=== PATIENT | male | born 1965 | race Caucasian/White ===

== ENCOUNTER 2018-07-30 10:37 | Emergency (ER) | payer SELFPAY ==
[~2018-07-30] VITALS: Ht 170.2 cm; Wt 75.0 kg
[2018-07-30] MEDS ORDERED: ALBU1.25 NEB (10:44)
[2018-07-30] MEDS ORDERED: VENTAER INH ×2 (10:44→11:48)
[2018-07-30] MEDS ORDERED: predniSONE 20 MG TAB PO ONE (11:00)
[2018-07-30] MEDS ORDERED: IPRATROPIUM 0.5MG/ALBUTEROL 2.5MG INH SOL UD 3ML (DUONEB)(J7620) NEB ONE (11:00)
[2018-07-30 11:26] VITALS: BP 141/92
--- NOTE | 2018-07-30 11:36 | REP ---
Chest x-ray: Two views. History: Shortness of breath and cough. No comparison study. Findings: There are increased markings in the right upper lobe distribution consistent with a subtle pneumonia. The lung galicia are otherwise clear. Pleural angles are sharp. Cardiomediastinal silhouette is unremarkable. There are degenerative disc changes in the thoracic spine. No acute bony abnormality. Impression: Subtle increased markings right upper lobe posteriorly consistent with pneumonia. Follow-up radiograph post treatment is recommended. Electronically Signed by Ulises Colon MD 07/30/2018 11:28 A
[2018-07-30] MEDS ORDERED: LEVA750T7 PO (11:48)
[2018-07-30] MEDS ORDERED: PRED20TA PO (11:48)
[2018-07-30] MEDS ORDERED: MUCI600T31 PO (11:48)
[2018-07-30] MEDS ORDERED: ALB2.5NEB NEB (11:48)
== END 2018-07-30 11:57 | disposition home or self-care (01) ==
LOC: M ED 10:37
DX: J18.9 Pneumonia, unspecified organism (principal); Z87.09 Personal history of other diseases of the respiratory system

== ENCOUNTER 2018-09-24 11:15 | Emergency (ER) | payer MEDICAID, SELFPAY ==
[~2018-09-24] VITALS: Ht 170.2 cm; Wt 75.0 kg
[~2018-09-24 11:15] MED LIST: ALB2.5NEB NEB; ALBU1.25 NEB; LEVA750T7 PO; MUCI600T31 PO; PRED20TA PO; VENTAER INH
[2018-09-24 12:15] LABS: BASO # 0.1 10^3/uL (0.0-0.2); BASO % 0.9 % (0.0-1.0); EOS # 1.1 10^3/uL (0.0-0.50); EOS % 12.6 % (0.0-3.0); HEMATOCRIT 39.7 % (42.0-52.0); LYMPH # 1.9 10^3/uL (1.5-4.5); LYMPH % 22.2 % (24.0-44.0); MEAN CORPUSCULAR HEMOGLOBIN 32.3 pg (27.0-33.0); MEAN CORPUSCULAR HGB CONC 35.3 g/dl (32.0-36.5); MEAN CORPUSCULAR VOLUME 91.7 fl (80.0-96.0); MONO # 0.6 10^3/uL (0.0-0.8); MONO % 6.8 % (0.0-5.0); NEUTROPHILS # 4.8 10^3/uL (1.8-7.7); NEUTROPHILS % 57.4 % (36.0-66.0); PLATELET COUNT, AUTOMATED 233 10^3/uL (150-450); RED BLOOD COUNT 4.33 10^6/uL (4.30-6.10); WHITE BLOOD COUNT 8.4 10^3/uL (4.0-10.0)
[2018-09-24] MEDS: ALBUTEROL SULFATE 2.5 MG/0.5 ML INH NEB SOLN INH PRN ×2 (12:22→12:24)
--- NOTE | 2018-09-24 12:27 | REP ---
PA and lateral chest: Comparison is 07/30/2018. There is a subtle right perihilar density, similar to the comparison study, compatible with subsegmental infiltrate that has resolved. A CT follow-up might be considered for further evaluation. Remainder the lung galicia are clear. Cardiac size normal. The enrrique, mediastinum, skeletal structures are. Impression: Persisting right perihilar density. Consider CT follow-up. Electronically Signed by Rizwan Larkin MD 09/24/2018 12:19 P
[2018-09-24] MEDS ORDERED: PROAAER10 INH (13:31)
[2018-09-24] MEDS ORDERED: ZITHTAB PO (13:31)
[2018-09-24 13:33] VITALS: BP 142/97
[2018-09-24 13:51] LABS: ALT/SGPT 29 U/L (12-78); BILIRUBIN,DIRECT 0.1 MG/DL (0.0-0.2); BILIRUBIN,TOTAL 0.6 MG/DL (0.2-1.0); BLOOD UREA NITROGEN 9 MG/DL (7-18); CALCIUM LEVEL 8.4 MG/DL (8.5-10.1); CARBON DIOXIDE LEVEL 25 MEQ/L (21-32); CHLORIDE LEVEL 109 MEQ/L (98-107); CREATININE FOR GFR 0.63 MG/DL (0.70-1.30); GLOMERULAR FILTRATION RATE > 60.0 (>56); GLUCOSE, FASTING 85 MG/DL (70-100); NT-PRO BNP 32 PG/ML (<125); POTASSIUM SERUM 4.5 MEQ/L (3.5-5.1); SODIUM LEVEL 142 MEQ/L (136-145); TOTAL PROTEIN 7.2 GM/DL (6.4-8.2)
--- NOTE | 2018-09-25 10:29 | ED PDOC ---
Post-Departure Follow-Up [facility] faxed formal report of cxr for fu Yazmin Winter MD Sep 25, 2018 10:29
--- NOTE | 2018-09-25 20:51 | ECGEPIP ---
Stationary ECG Study [facility] - ED Test Date: 2018-09-24 Pat Name: LUCIO MORALES Department: Room: - Gender: M [employer]: : [id number] Requested By: Clara Kay PA-C Order Number: [id number] Reading MD: Abbi Ac Measurements Intervals [place] Rate: 76 P: 48 NH: 152 QRS: -12 QRSD: 93 T: 41 QT: 375 QTc: 422 Interpretive Statements SINUS RHYTHM WITH SINUS ARRHYTHMIA RIGHT VENTRICULAR CONDUCTION DELAY NO PRIOR FOR COMPARISON Electronically Signed On 09-25-2018 20:50:56 EDT by Abbi Ac
[2018-09-29 00:06] LABS: BODY FLUID CULTURE Not Indicated (.); LEGIONELLA ANTIGEN URINE Negative (Negative); ORGANISM ID Not indicated. (.); SPECIMEN SOURCE Urine (.); URINE STREP PNEUMONIAE ANTIGEN Negative (Negative)
[2018-09-30 00:10] LABS: ASPERGILLUS FLAVUS ABY Negative (Neg:<1:1); ASPERGILLUS FUMIGATUS ABY Negative (Neg:<1:1); ASPERGILLUS NIGER ABY Negative (Neg:<1:1)
== END 2018-09-24 14:24 | disposition home or self-care (01) ==
LOC: M ED 11:15
DX: R05 Cough (principal); R06.02 Shortness of breath; R06.2 Wheezing; R93.89 Abnormal findings on diagnostic imaging of other specified body structures; D64.9 Anemia, unspecified; E87.6 Hypokalemia; I49.9 Cardiac arrhythmia, unspecified; R94.31 Abnormal electrocardiogram [ECG] [EKG]; Z86.19 Personal history of other infectious and parasitic diseases; Z87.01 Personal history of pneumonia (recurrent)

== ENCOUNTER 2018-10-28 13:18 | Emergency (ER) | payer MEDICAID ==
[~2018-10-28] VITALS: Ht 170.2 cm; Wt 75.0 kg
[~2018-10-28 13:18] MED LIST changes: +PROAAER10 INH; +ZITHTAB PO
[2018-10-28] MEDS ORDERED: methylPREDNISolone INJ 125 MG/2 ML VIAL (J2930) IM ONE (14:15)
--- NOTE | 2018-10-28 14:17 | REP ---
PA and lateral chest: Comparisons are 09/24/2018 and 07/30/2018. There is a persisting 15 ml faintly visible nodular density in the right upper lobe, unchanged from both prior studies. Therefore, CT is recommended to determine if this is a lung nodule. There are no infiltrates or effusions. No other nodules. The lung galicia otherwise clear and unchanged. Cardiac size is normal. The enrrique, mediastinum, skeletal structures are unremarkable. Impression: Persisting 15 ml nodular density in the right upper lobe. CT is recommended for further evaluation. Electronically Signed by Rizwan Larkin MD 10/28/2018 02:08 P
[2018-10-28] MEDS: IPRATROPIUM 0.5MG/ALBUTEROL 2.5MG INH SOL UD 3ML (DUONEB)(J7620) NEB PRN ×2 (14:26→14:39)
[2018-10-28] MEDS ORDERED: PROAAER10 INH (15:00)
[2018-10-28] MEDS ORDERED: ALBU83IN NEB (15:00)
[2018-10-28] MEDS ORDERED: EASY-106 XX (15:00)
[2018-10-28] MEDS ORDERED: PRED20TA PO (15:01)
--- NOTE | 2018-10-28 15:02 | REP ---
CT chest without contrast: History: Evaluation of nodule. Comparison is made with today's chest x-ray. CT findings: CT study confirms the presence of abnormality in the right upper lobe distribution. There is a clustering of spiculated nodular opacities in the posterior segment of the right upper lobe. The largest of these measures 2.1 cm in greatest diameter. This and several other smaller nodular opacities in the right upper lobe abut the top of the major fissure. The next largest spiculated nodule measures 1.5 cm in greatest diameter. There are ten separately identifiable spiculated nodules in the right upper lobe. No other pulmonary nodule is appreciated. Some vascular calcifications is noted. There are scattered normal-sized mediastinal lymph nodes. The largest mediastinal lymph node is to the left of the calli measuring 10 mm in short axis dimension. No definite hilar adenopathy on this noncontrast chest CT. No obvious supraclavicular adenopathy is seen. No adrenal lesion is observed. No hepatic lesion is seen. No bony destructive lesion is seen. Impression: Multiple spiculated nodules clustered in the posterior segment of the right upper lobe measuring up to 2.1 cm in greatest diameter. Primary bronchogenic malignancy must be excluded. There is one borderline mediastinal lymph node and several other smaller mediastinal lymph nodes. Consider histologic sampling and PET/CT scanning. Electronically Signed by Ulises Colon MD 10/28/2018 08:07 P
[2018-10-28 15:09] VITALS: BP 130/93
--- NOTE | 2018-10-31 13:44 | ED PDOC ---
Post-Departure Follow-Up certified letter sent to [facility] re formal read of cxr. find out pcp is and fax Yazmin Newby MD Oct 31, 2018 13:44
== END 2018-10-28 15:10 | disposition home or self-care (01) ==
LOC: M ED 13:18
DX: R91.1 Solitary pulmonary nodule (principal); R06.2 Wheezing; R05 Cough; R59.0 Localized enlarged lymph nodes; Z86.19 Personal history of other infectious and parasitic diseases
CPT/HCPCS: 71046; 71250; 94640; 96372; 99283; J2930

== ENCOUNTER → 2019-01-03 | Outpatient (REF) | payer OTHER ==
[~2019-01-03] MED LIST changes: +ALBU83IN NEB; +EASY-106 XX
== END ==
LOC: M LAB REF 17:13
PROVIDERS: ATTEND Internal Medicine Pulmonary Disease
DX: R91.8 Other nonspecific abnormal finding of lung field (principal)

== ENCOUNTER 2021-10-15 16:32 | Inpatient (IN) | payer MEDICAID, OTHER, SELFPAY ==
[~2021-10-15] VITALS: Ht 170.2 cm; Wt 69.4 kg
[2021-10-15] MEDS ORDERED: SING10TA32 PO (16:45)
[2021-10-15] MEDS ORDERED: IPRATROPIUM 0.5MG/ALBUTEROL 2.5MG INH SOL UD 3ML (DUONEB) NEB ONE (22:15)
[2021-10-15] MEDS ORDERED: methylPREDNISolone 125MG 2ML VIAL IV ONE (22:15)
[2021-10-15] MEDS ORDERED: ALBUTEROL SULFATE 2.5 MG/0.5 ML INH NEB SOLN INH ONE ×2 (22:15→22:40)
[2021-10-15 23:30] LABS: BASO # 0.1 10^3/uL (0.0-0.2); BASO % 0.6 % (0.0-1.0); EOS # 1.1 10^3/uL (0.0-0.5); EOS % 6.8 % (0.0-3.0); HEMATOCRIT 45.9 % (42.0-52.0); HEMOGLOBIN 15.5 g/dl (13.5-17.5); LYMPH # 2.6 10^3/uL (1.5-5.0); LYMPH % 16.1 % (24.0-44.0); MEAN CORPUSCULAR HEMOGLOBIN 30.1 pg (27.0-33.0); MEAN CORPUSCULAR HGB CONC 33.8 g/dl (32.0-36.5); MEAN CORPUSCULAR VOLUME 89.1 fl (80.0-96.0); MONO # 0.8 10^3/uL (0.0-0.8); MONO % 5.1 % (2.0-8.0); NEUTROPHILS # 11.5 10^3/uL (1.5-8.5); NEUTROPHILS % 71.1 % (36.0-66.0); PLATELET COUNT, AUTOMATED 265 10^3/uL (150-450); RED BLOOD COUNT 5.15 10^6/uL (4.30-6.10); WHITE BLOOD COUNT 16.1 10^3/uL (4.0-10.0)
[2021-10-15 23:58] LABS: CK-MB VALUE MASS < 1.0 NG/ML (<3.6); CPK CREATINE PHOSPHOKINASE 60 U/L (39-308); MB/CK RELATIVE INDEX 1.67 (< OR =4)
[2021-10-16 00:04] LABS: ALBUMIN 3.7 GM/DL (3.2-5.2); ALT/SGPT 40 U/L (12-78); BILIRUBIN,DIRECT 0.1 MG/DL (0.0-0.2); BILIRUBIN,TOTAL 0.5 MG/DL (0.2-1.0); BLOOD UREA NITROGEN 12 MG/DL (7-18); CALCIUM LEVEL 9.9 MG/DL (8.5-10.1); CARBON DIOXIDE LEVEL 33 MEQ/L (21-32); CHLORIDE LEVEL 100 MEQ/L (98-107); GLOMERULAR FILTRATION RATE > 60.0 (>56); GLUCOSE, FASTING 96 MG/DL (70-100); NT-PRO BNP 12 PG/ML (<125); POTASSIUM SERUM 4.8 MEQ/L (3.5-5.1); SODIUM LEVEL 138 MEQ/L (136-145); THYROXINE (T4) 9.7 UG/DL (4.5-12.0); TOTAL PROTEIN 8.8 GM/DL (6.4-8.2)
[2021-10-16] MEDS ORDERED: ALBUTEROL SULFATE 2.5 MG/0.5 ML INH NEB SOLN INH ONE (00:30)
[2021-10-16] MEDS ORDERED: IPRATROPIUM 0.5MG/ALBUTEROL 2.5MG INH SOL UD 3ML (DUONEB) NEB ONE ×2 (00:30→01:50)
[2021-10-16] MEDS ORDERED: ISOVUE-370 76% 100ML VIAL As Ordered ONE (00:32)
[2021-10-16] MEDS ORDERED: LEVALBUTEROL 1.25 MG/0.5 ML CONCENTRATE NEB NEB PRN (03:00)
[2021-10-16] MEDS ORDERED: MAALOX 30 ML SUSP *UDC PO PRN (03:00)
[2021-10-16] MEDS ORDERED: MOM 30ML SUSPENSION UDC PO PRN (03:00)
[2021-10-16] MEDS ORDERED: ACETAMINOPHEN TAB 650MG DOSE (2X325MG) PO PRN (03:00)
[2021-10-16 03:37] LABS: INR 0.99; PROTHROMBIN TIME 13.5 SECONDS (12.7-14.5)
[2021-10-16 03:38] LABS: PARTIAL THROMBOPLASTIN TIME 33.1 SECONDS (25.9-37.0)
[2021-10-16] MEDS ORDERED: ADVA230A INH (06:12)
[2021-10-16] MEDS ORDERED: ALBU8.5H INH (06:12)
[2021-10-16] MEDS ORDERED: MONT10TA97 PO (06:12)
[2021-10-16] MEDS ORDERED: HOME MED LIST COMPLETE! XX SCH (06:15)
[2021-10-16] MEDS: IPRATROPIUM 0.5MG/ALBUTEROL 2.5MG INH SOL UD 3ML (DUONEB) NEB SCH ×3 (07:50→20:03)
[2021-10-16 08:10] LABS: HEMATOCRIT 45.5 % (42.0-52.0); HEMOGLOBIN 15.5 g/dl (13.5-17.5); MEAN CORPUSCULAR HEMOGLOBIN 30.1 pg (27.0-33.0); MEAN CORPUSCULAR HGB CONC 34.1 g/dl (32.0-36.5); MEAN CORPUSCULAR VOLUME 88.3 fl (80.0-96.0); RED BLOOD COUNT 5.15 10^6/uL (4.30-6.10); WHITE BLOOD COUNT 10.9 10^3/uL (4.0-10.0)
[2021-10-16 08:31] LABS: BLOOD UREA NITROGEN 14 MG/DL (7-18); CALCIUM LEVEL 9.6 MG/DL (8.5-10.1); CARBON DIOXIDE LEVEL 28 MEQ/L (21-32); CHLORIDE LEVEL 100 MEQ/L (98-107); CREATININE FOR GFR 0.78 MG/DL (0.70-1.30); GLOMERULAR FILTRATION RATE > 60.0 (>56); GLUCOSE, FASTING 134 MG/DL (70-100); MAGNESIUM LEVEL 2.3 MG/DL (1.8-2.4); POTASSIUM SERUM 4.9 MEQ/L (3.5-5.1); SODIUM LEVEL 134 MEQ/L (136-145)
[2021-10-16] MEDS: ENOXAPARIN 40MG/0.4ML SYRINGE (J1650 PER 10MG) SC SCH (08:40)
[2021-10-16] MEDS: methylPREDNISolone 125MG 2ML VIAL IV SCH ×2 (08:40→20:39)
[2021-10-16] MEDS: DOCUSATE SODIUM 100MG CAPSULE PO SCH ×2 (08:40→20:38)
[2021-10-16 13:20] VITALS: BP 134/98
[2021-10-16 13:45] VITALS: O2SAT 94
[2021-10-16 18:46] VITALS: BP 142/76
[2021-10-17 00:34] VITALS: O2SAT 92
[2021-10-17] MEDS: guaiFENesin DM LIQ 10ML UD PO PRN ×2 (03:38→11:42)
[2021-10-17] MEDS: IPRATROPIUM 0.5MG/ALBUTEROL 2.5MG INH SOL UD 3ML (DUONEB) NEB SCH ×3 (03:38→13:22)
[2021-10-17 06:00] VITALS: BP 142/88
[2021-10-17] MEDS ORDERED: ADVAIR HFA 230/21MCG INHALER INH SCH (08:00)
[2021-10-17] MEDS ORDERED: AZITHROMYCIN 250MG TABLET PO ONE (08:30)
[2021-10-17] MEDS: methylPREDNISolone 125MG 2ML VIAL IV SCH (08:59)
[2021-10-17] MEDS: DOCUSATE SODIUM 100MG CAPSULE PO SCH (09:00)
[2021-10-17] MEDS: ENOXAPARIN 40MG/0.4ML SYRINGE (J1650 PER 10MG) SC SCH (09:01)
[2021-10-17] MEDS ORDERED: ALBU83IN INH (09:11)
[2021-10-17] MEDS ORDERED: SPIR1CAP INH (09:11)
[2021-10-17] MEDS ORDERED: DULE100A INH (09:11)
[2021-10-17] MEDS ORDERED: PRED10TA2 PO (09:11)
[2021-10-17] MEDS ORDERED: AZIT-12 PO (09:11)
[2021-10-17] MEDS ORDERED: PROV108A INH (09:11)
[2021-10-17] MEDS ORDERED: NORV5TAB PO (10:48)
[2021-10-17] MEDS ORDERED: SELF1KIT MC (10:50)
[2021-10-17] MEDS ORDERED: amLODIPine 5 MG TAB PO ONE (11:00)
[2021-10-17 11:42] VITALS: BP 158/98
[2021-10-17] MEDS ORDERED: methylPREDNISolone 125MG 2ML VIAL IV ONE (15:30)
[2021-10-17] MEDS: LEVALBUTEROL 1.25 MG/0.5 ML CONCENTRATE NEB INH SCH ×2 (15:47→15:48)
[2021-10-17] MEDS ORDERED: amLODIPine 5 MG TAB PO SCH (21:00)
[2021-10-17] MEDS ORDERED: MONTELUKAST 10 MG TAB PO SCH (21:00)
[2021-10-18] MEDS ORDERED: predniSONE 20 MG TAB PO SCH (09:00)
[2021-10-18] MEDS ORDERED: AZITHROMYCIN 250MG TABLET PO SCH (09:00)
== END 2021-10-17 17:53 | disposition home or self-care (01) | DRG 140 ==
LOC: M ED 16:32 → M ED INP 10-16 03:00 → ENRESERV 10-16 13:01 → M MSPAV 10-16 13:19
PROVIDERS: ADMIT Family Medicine; ATTEND General Practice
DX: J44.1 Chronic obstructive pulmonary disease with (acute) exacerbation (principal); J45.909 Unspecified asthma, uncomplicated; R00.0 Tachycardia, unspecified; E87.1 Hypo-osmolality and hyponatremia; R91.8 Other nonspecific abnormal finding of lung field; I16.0 Hypertensive urgency; Z79.899 Other long term (current) drug therapy

== ENCOUNTER 2022-01-06 07:04 | Emergency (ER) | payer MEDICAID, OTHER ==
[~2022-01-06] VITALS: Ht 170.2 cm; Wt 69.9 kg
[~2022-01-06 07:04] MED LIST changes: +ADVA230A INH; +ALBU2.5V10 INH; +ALBU2.5V10 NEB; +ALBU8.5H INH; -ALBU83IN NEB; +AZIT-12 PO; +DULE100A INH; +MONT10TA97 PO; +NORV5TAB PO; +PRED10TA2 PO; +PROV108A INH; +SELF1KIT MC; +SING10TA32 PO; +SPIR1CAP INH
[2022-01-06] MEDS ORDERED: predniSONE 20 MG TAB PO ONE (07:35)
[2022-01-06 08:20] LABS: VENOUS BASE EXCESS -1.3 (-2.0-2.0); VENOUS HCO3 24.6 MEQ/L (23.0-27.0); VENOUS O2 SATURATION 86.9 % (60.0-80.0); VENOUS PARTIAL PRESSURE CO2 45.2 mmHg (38.0-50.0); VENOUS PARTIAL PRESSURE O2 56.2 mmHg (30.0-50.0); VENOUS PH 7.353 UNITS (7.330-7.430); VENOUS STANDARD HCO3 23.1 MEQ/L
[2022-01-06 08:25] LABS: BASO # 0.1 10^3/uL (0.0-0.2); BASO % 0.8 % (0.0-1.0); EOS # 2.2 10^3/uL (0.0-0.5); HEMATOCRIT 43.5 % (42.0-52.0); HEMOGLOBIN 14.7 g/dl (13.5-17.5); LYMPH # 1.8 10^3/uL (1.5-5.0); LYMPH % 17.1 % (24.0-44.0); MEAN CORPUSCULAR HEMOGLOBIN 30.5 pg (27.0-33.0); MEAN CORPUSCULAR HGB CONC 33.8 g/dl (32.0-36.5); MEAN CORPUSCULAR VOLUME 90.2 fl (80.0-96.0); MONO # 0.7 10^3/uL (0.0-0.8); MONO % 6.4 % (2.0-8.0); NEUTROPHILS # 5.9 10^3/uL (1.5-8.5); NEUTROPHILS % 54.8 % (36.0-66.0); RED BLOOD COUNT 4.82 10^6/uL (4.30-6.10); WHITE BLOOD COUNT 10.7 10^3/uL (4.0-10.0)
[2022-01-06] MEDS: COMBIVENT RESPIMAT 100-20MCG INHALER 4GM INH SCH ×3 (08:37→09:04)
[2022-01-06 08:41] LABS: EOS % 20.7 % (0.0-3.0)
[2022-01-06 08:57] LABS: ALBUMIN 3.7 GM/DL (3.2-5.2); ALT/SGPT 17 U/L (12-78); BILIRUBIN,DIRECT < 0.1 MG/DL (0.0-0.2); BILIRUBIN,TOTAL 0.4 MG/DL (0.2-1.0); BLOOD UREA NITROGEN 11 MG/DL (7-18); CALCIUM LEVEL 9.7 MG/DL (8.5-10.1); CARBON DIOXIDE LEVEL 25 MEQ/L (21-32); CHLORIDE LEVEL 102 MEQ/L (98-107); CREATININE FOR GFR 0.78 MG/DL (0.70-1.30); GLOMERULAR FILTRATION RATE > 60.0 (>56); GLUCOSE, FASTING 93 MG/DL (70-100); POTASSIUM SERUM 3.8 MEQ/L (3.5-5.1); SODIUM LEVEL 137 MEQ/L (136-145); TOTAL PROTEIN 8.4 GM/DL (6.4-8.2)
[2022-01-06 08:58] LABS: NT-PRO BNP 53 PG/ML (<125)
[2022-01-06] MEDS ORDERED: ISOVUE-370 76% 100ML VIAL As Ordered ONE (09:55)
[2022-01-06] MEDS ORDERED: PRED20TA PO (11:13)
[2022-01-06] MEDS ORDERED: LEVO750T14 PO (11:13)
[2022-01-06 11:21] VITALS: BP 138/95
[2022-01-07] MEDS ORDERED: AMLO1TAB24 PO (03:28)
[2022-01-07] MEDS ORDERED: DULE100A INH (03:28)
[2022-01-07] MEDS ORDERED: PRED20TA PO (03:28)
[2022-01-07] MEDS ORDERED: LEVO750T13 PO (03:28)
== END 2022-01-06 11:23 | disposition home or self-care (01) ==
LOC: M ED 07:04
DX: J44.1 Chronic obstructive pulmonary disease with (acute) exacerbation (principal); H66.91 Otitis media, unspecified, right ear; J45.909 Unspecified asthma, uncomplicated; R91.1 Solitary pulmonary nodule; Z79.899 Other long term (current) drug therapy
CPT/HCPCS: 36415; 71045; 71275; 80048; 80076; 82803; 83605; 83880; 84443; 85025; 87040; 87077; 87186; 87486; 87581; 87633; 87798; 93005; 93041; 94640; 94760; 99284; J7512; Q9967

== ENCOUNTER 2022-01-06 23:41 | Inpatient (IN) | payer OTHER ==
[~2022-01-06] VITALS: Ht 170.2 cm; Wt 67.7 kg
[~2022-01-06 23:41] MED LIST changes: +LEVO750T14 PO
[2022-01-07] MEDS ORDERED: methylPREDNISolone 125MG 2ML VIAL IV ONE (00:25)
[2022-01-07 00:53] LABS: VENOUS BASE EXCESS -0.6 (-2.0-2.0); VENOUS HCO3 24.2 MEQ/L (23.0-27.0); VENOUS O2 SATURATION 92.2 % (60.0-80.0); VENOUS PARTIAL PRESSURE CO2 40.2 mmHg (38.0-50.0); VENOUS PARTIAL PRESSURE O2 65.6 mmHg (30.0-50.0); VENOUS PH 7.397 UNITS (7.330-7.430); VENOUS STANDARD HCO3 23.9 MEQ/L; VENOUS TOTAL CO2 25.4 MEQ/L (24.0-28.0)
[2022-01-07] MEDS: IPRATROPIUM 0.5MG/ALBUTEROL 2.5MG INH SOL UD 3ML (DUONEB) NEB PRN ×3 (00:57→06:34)
[2022-01-07 01:02] LABS: BASO % 0.2 % (0.0-1.0); HEMATOCRIT 41.7 % (42.0-52.0); HEMOGLOBIN 14.1 g/dl (13.5-17.5); LYMPH # 0.9 10^3/uL (1.5-5.0); LYMPH % 8.9 % (24.0-44.0); MEAN CORPUSCULAR HEMOGLOBIN 30.2 pg (27.0-33.0); MEAN CORPUSCULAR HGB CONC 33.8 g/dl (32.0-36.5); MEAN CORPUSCULAR VOLUME 89.3 fl (80.0-96.0); MONO # 0.5 10^3/uL (0.0-0.8); MONO % 5.4 % (2.0-8.0); NEUTROPHILS # 8.2 10^3/uL (1.5-8.5); NEUTROPHILS % 85.1 % (36.0-66.0); RED BLOOD COUNT 4.67 10^6/uL (4.30-6.10); WHITE BLOOD COUNT 9.6 10^3/uL (4.0-10.0)
[2022-01-07 01:26] LABS: ALBUMIN 3.5 GM/DL (3.2-5.2); ALT/SGPT 19 U/L (12-78); BILIRUBIN,DIRECT 0.2 MG/DL (0.0-0.2); BILIRUBIN,TOTAL 0.2 MG/DL (0.2-1.0); BLOOD UREA NITROGEN 13 MG/DL (7-18); CALCIUM LEVEL 8.8 MG/DL (8.5-10.1); CARBON DIOXIDE LEVEL 25 MEQ/L (21-32); CHLORIDE LEVEL 101 MEQ/L (98-107); CREATININE FOR GFR 0.81 MG/DL (0.70-1.30); GLOMERULAR FILTRATION RATE > 60.0 (>56); GLUCOSE, FASTING 125 MG/DL (70-100); POTASSIUM SERUM 4.1 MEQ/L (3.5-5.1); SODIUM LEVEL 137 MEQ/L (136-145); TOTAL PROTEIN 8.6 GM/DL (6.4-8.2)
[2022-01-07] MEDS ORDERED: cefTRIAXone SOD 1 GM in D5W MINI-BAG PLUS 50 ML IV ONE (02:55)
[2022-01-07] MEDS ORDERED: AMLO1TAB24 PO (03:28)
[2022-01-07] MEDS ORDERED: DULE100A INH (03:28)
[2022-01-07] MEDS ORDERED: LEVO750T13 PO (03:28)
[2022-01-07] MEDS ORDERED: PRED20TA PO (03:28)
[2022-01-07] MEDS ORDERED: MAALOX 30 ML SUSP *UDC PO PRN (03:30)
[2022-01-07] MEDS ORDERED: HOME MED LIST COMPLETE! XX SCH (03:30)
[2022-01-07] MEDS ORDERED: MOM 30ML SUSPENSION UDC PO PRN (03:30)
[2022-01-07] MEDS ORDERED: ACETAMINOPHEN TAB 650MG DOSE (2X325MG) PO PRN (03:30)
[2022-01-07] MEDS ORDERED: LEVALBUTEROL 1.25 MG/0.5 ML CONCENTRATE NEB NEB PRN (03:30)
[2022-01-07 03:49] LABS: INR 0.99; PROTHROMBIN TIME 13.5 SECONDS (12.7-14.5)
[2022-01-07 03:50] LABS: PARTIAL THROMBOPLASTIN TIME 31.8 SECONDS (25.9-37.0)
[2022-01-07 06:38] LABS: HEMATOCRIT 41.2 % (42.0-52.0); HEMOGLOBIN 13.8 g/dl (13.5-17.5); MEAN CORPUSCULAR HEMOGLOBIN 30.1 pg (27.0-33.0); MEAN CORPUSCULAR HGB CONC 33.5 g/dl (32.0-36.5); MEAN CORPUSCULAR VOLUME 89.8 fl (80.0-96.0); PLATELET COUNT, AUTOMATED 214 10^3/uL (150-450); RED BLOOD COUNT 4.59 10^6/uL (4.30-6.10); WHITE BLOOD COUNT 9.8 10^3/uL (4.0-10.0)
[2022-01-07 07:02] LABS: BLOOD UREA NITROGEN 12 MG/DL (7-18); CALCIUM LEVEL 9.7 MG/DL (8.5-10.1); CARBON DIOXIDE LEVEL 25 MEQ/L (21-32); CHLORIDE LEVEL 105 MEQ/L (98-107); CREATININE FOR GFR 0.62 MG/DL (0.70-1.30); GLOMERULAR FILTRATION RATE > 60.0 (>56); GLUCOSE, FASTING 138 MG/DL (70-100); MAGNESIUM LEVEL 2.5 MG/DL (1.8-2.4); POTASSIUM SERUM 4.5 MEQ/L (3.5-5.1); SODIUM LEVEL 138 MEQ/L (136-145)
[2022-01-07] MEDS: IPRATROPIUM 0.5MG/ALBUTEROL 2.5MG INH SOL UD 3ML (DUONEB) NEB SCH ×4 (08:00→19:13)
[2022-01-07] MEDS: ADVAIR HFA 115/21MCG INHALER INH SCH ×2 (08:14→19:13)
[2022-01-07] MEDS: ENOXAPARIN 40MG/0.4ML SYRINGE (J1650 PER 10MG) SC SCH (09:11)
[2022-01-07] MEDS: DOCUSATE SODIUM 100MG CAPSULE PO SCH ×2 (09:11→22:26)
[2022-01-07] MEDS: amLODIPine 5 MG TAB PO SCH (09:12)
[2022-01-07 11:55] VITALS: BP 155/103
[2022-01-07 11:59] VITALS: BP 144/98
[2022-01-07 12:00] VITALS: BP 151/96
[2022-01-07 12:12] VITALS: O2SAT 93
[2022-01-07] MEDS: methylPREDNISolone 125MG 2ML VIAL IV SCH ×2 (12:30→23:24)
[2022-01-07 14:00] VITALS: BP 148/96
[2022-01-07] MEDS ORDERED: cefTRIAXone SOD 1 GM in D5W MINI-BAG PLUS 50 ML IV SCH (21:00)
[2022-01-07 21:30] VITALS: BP 147/95
[2022-01-08] MEDS: IPRATROPIUM 0.5MG/ALBUTEROL 2.5MG INH SOL UD 3ML (DUONEB) NEB SCH ×4 (02:00→19:27)
[2022-01-08 05:13] VITALS: O2SAT 91
[2022-01-08 06:00] VITALS: BP 142/93
[2022-01-08] MEDS: ADVAIR HFA 115/21MCG INHALER INH SCH ×2 (07:47→19:27)
[2022-01-08 08:31] LABS: HEMATOCRIT 44.2 % (42.0-52.0); HEMOGLOBIN 14.5 g/dl (13.5-17.5); MEAN CORPUSCULAR HEMOGLOBIN 29.8 pg (27.0-33.0); MEAN CORPUSCULAR HGB CONC 32.8 g/dl (32.0-36.5); MEAN CORPUSCULAR VOLUME 90.9 fl (80.0-96.0); PLATELET COUNT, AUTOMATED 170 10^3/uL (150-450); RED BLOOD COUNT 4.86 10^6/uL (4.30-6.10); WHITE BLOOD COUNT 19.2 10^3/uL (4.0-10.0)
[2022-01-08] MEDS: amLODIPine 5 MG TAB PO SCH (08:40)
[2022-01-08] MEDS: DOCUSATE SODIUM 100MG CAPSULE PO SCH ×2 (08:40→21:19)
[2022-01-08] MEDS: ENOXAPARIN 40MG/0.4ML SYRINGE (J1650 PER 10MG) SC SCH (08:41)
[2022-01-08 08:57] LABS: BLOOD UREA NITROGEN 15 MG/DL (7-18); CARBON DIOXIDE LEVEL 25 MEQ/L (21-32); CHLORIDE LEVEL 105 MEQ/L (98-107); CREATININE FOR GFR 0.72 MG/DL (0.70-1.30); GLOMERULAR FILTRATION RATE > 60.0 (>56); GLUCOSE, FASTING 110 MG/DL (70-100); POTASSIUM SERUM 4.3 MEQ/L (3.5-5.1); SODIUM LEVEL 139 MEQ/L (136-145)
[2022-01-08] MEDS: methylPREDNISolone 125MG 2ML VIAL IV SCH (12:55)
[2022-01-08 14:00] VITALS: BP 158/90
[2022-01-08 16:03] LABS: IMMUNOGLOBULIN G 1700 MG/DL (681-1648); IMMUNOGLOBULIN M 95.8 MG/DL (40-230)
[2022-01-08] MEDS: guaiFENesin DM LIQ 10ML UD PO PRN (21:19)
[2022-01-08 22:00] VITALS: BP 148/98
[2022-01-08 23:58] LABS: HIV 1&2 SCREEN CENTAUR NEGATIVE (NEGATIVE)
[2022-01-09] MEDS: IPRATROPIUM 0.5MG/ALBUTEROL 2.5MG INH SOL UD 3ML (DUONEB) NEB SCH ×4 (01:50→19:58)
[2022-01-09 04:00] VITALS: O2SAT 93
[2022-01-09 06:00] VITALS: BP 144/98
[2022-01-09 06:49] LABS: HEMATOCRIT 42.5 % (42.0-52.0); HEMOGLOBIN 14.1 g/dl (13.5-17.5); MEAN CORPUSCULAR HEMOGLOBIN 30.1 pg (27.0-33.0); MEAN CORPUSCULAR HGB CONC 33.2 g/dl (32.0-36.5); MEAN CORPUSCULAR VOLUME 90.6 fl (80.0-96.0); PLATELET COUNT, AUTOMATED 120 10^3/uL (150-450); RED BLOOD COUNT 4.69 10^6/uL (4.30-6.10)
[2022-01-09 07:01] LABS: BLOOD UREA NITROGEN 13 MG/DL (7-18); CALCIUM LEVEL 8.3 MG/DL (8.5-10.1); CARBON DIOXIDE LEVEL 30 MEQ/L (21-32); CHLORIDE LEVEL 102 MEQ/L (98-107); CREATININE FOR GFR 0.55 MG/DL (0.70-1.30); GLOMERULAR FILTRATION RATE > 60.0 (>56); GLUCOSE, FASTING 81 MG/DL (70-100); POTASSIUM SERUM 3.5 MEQ/L (3.5-5.1); SODIUM LEVEL 137 MEQ/L (136-145)
[2022-01-09] MEDS: ADVAIR HFA 115/21MCG INHALER INH SCH ×2 (07:59→19:58)
[2022-01-09 09:00] VITALS: O2SAT 91
[2022-01-09] MEDS ORDERED: predniSONE 20 MG TAB PO SCH (09:00)
[2022-01-09] MEDS: FLUTICASONE PROP 0.05% NASAL SPRAY 16 GM (FLONASE) NARES SCH (09:00)
[2022-01-09] MEDS: DOCUSATE SODIUM 100MG CAPSULE PO SCH ×2 (09:04→19:37)
[2022-01-09] MEDS: ENOXAPARIN 40MG/0.4ML SYRINGE (J1650 PER 10MG) SC SCH (09:04)
[2022-01-09] MEDS: predniSONE 20 MG TAB PO SCH (09:05)
[2022-01-09] MEDS: amLODIPine 5 MG TAB PO SCH (09:09)
[2022-01-09 14:00] VITALS: BP 149/113
[2022-01-09] MEDS: guaiFENesin DM LIQ 10ML UD PO PRN (19:37)
[2022-01-09] MEDS: VORICONAZOLE 200MG TABLET (VFEND) PO SCH (19:37)
[2022-01-09 21:35] VITALS: BP 142/96
[2022-01-10] MEDS: IPRATROPIUM 0.5MG/ALBUTEROL 2.5MG INH SOL UD 3ML (DUONEB) NEB SCH ×4 (01:14→20:00)
[2022-01-10 06:00] VITALS: BP 155/93
[2022-01-10 06:42] LABS: HEMATOCRIT 43.2 % (42.0-52.0); HEMOGLOBIN 14.4 g/dl (13.5-17.5); MEAN CORPUSCULAR HEMOGLOBIN 30.5 pg (27.0-33.0); MEAN CORPUSCULAR HGB CONC 33.3 g/dl (32.0-36.5); MEAN CORPUSCULAR VOLUME 91.5 fl (80.0-96.0); RED BLOOD COUNT 4.72 10^6/uL (4.30-6.10); WHITE BLOOD COUNT 10.2 10^3/uL (4.0-10.0)
[2022-01-10 07:03] LABS: BLOOD UREA NITROGEN 13 MG/DL (7-18); CALCIUM LEVEL 9.4 MG/DL (8.5-10.1); CARBON DIOXIDE LEVEL 28 MEQ/L (21-32); CHLORIDE LEVEL 103 MEQ/L (98-107); CREATININE FOR GFR 0.68 MG/DL (0.70-1.30); GLOMERULAR FILTRATION RATE > 60.0 (>56); GLUCOSE, FASTING 92 MG/DL (70-100); POTASSIUM SERUM 3.4 MEQ/L (3.5-5.1); SODIUM LEVEL 139 MEQ/L (136-145)
[2022-01-10] MEDS: ADVAIR HFA 115/21MCG INHALER INH SCH ×2 (07:36→20:03)
[2022-01-10] MEDS: DOCUSATE SODIUM 100MG CAPSULE PO SCH ×2 (09:25→21:22)
[2022-01-10] MEDS: ENOXAPARIN 40MG/0.4ML SYRINGE (J1650 PER 10MG) SC SCH (09:26)
[2022-01-10] MEDS: VORICONAZOLE 200MG TABLET (VFEND) PO SCH ×2 (09:26→21:22)
[2022-01-10] MEDS: predniSONE 20 MG TAB PO SCH (09:26)
[2022-01-10] MEDS: amLODIPine 5 MG TAB PO SCH (09:26)
[2022-01-10] MEDS: FLUTICASONE PROP 0.05% NASAL SPRAY 16 GM (FLONASE) NARES SCH (09:26)
[2022-01-10] MEDS ORDERED: SPOR1CAP PO (09:45)
[2022-01-10] MEDS ORDERED: PRED10TA2 PO (09:45)
[2022-01-10] MEDS ORDERED: MONT10TA97 PO (09:45)
[2022-01-10] MEDS ORDERED: BACT800T5 PO (09:45)
[2022-01-10] MEDS ORDERED: FLUTISP NARES (09:45)
[2022-01-10] MEDS ORDERED: GUAISYP5 PO (09:45)
[2022-01-10] MEDS ORDERED: AMLO1TAB25 PO (09:45)
[2022-01-10] MEDS: MONTELUKAST 10 MG TAB PO SCH (10:31)
[2022-01-10 14:00] VITALS: BP 150/82
[2022-01-10 20:12] VITALS: BP 137/87
[2022-01-11] MEDS: IPRATROPIUM 0.5MG/ALBUTEROL 2.5MG INH SOL UD 3ML (DUONEB) NEB SCH ×4 (01:53→20:00)
[2022-01-11 05:51] VITALS: BP 148/85
[2022-01-11 06:16] LABS: HEMOGLOBIN 14.7 g/dl (13.5-17.5); MEAN CORPUSCULAR HEMOGLOBIN 29.5 pg (27.0-33.0); MEAN CORPUSCULAR HGB CONC 32.7 g/dl (32.0-36.5); MEAN CORPUSCULAR VOLUME 90.4 fl (80.0-96.0); PLATELET COUNT, AUTOMATED 153 10^3/uL (150-450); RED BLOOD COUNT 4.98 10^6/uL (4.30-6.10); WHITE BLOOD COUNT 11.5 10^3/uL (4.0-10.0)
[2022-01-11 06:37] LABS: BLOOD UREA NITROGEN 14 MG/DL (7-18); CALCIUM LEVEL 9.3 MG/DL (8.5-10.1); CARBON DIOXIDE LEVEL 30 MEQ/L (21-32); CHLORIDE LEVEL 104 MEQ/L (98-107); CREATININE FOR GFR 0.62 MG/DL (0.70-1.30); GLOMERULAR FILTRATION RATE > 60.0 (>56); GLUCOSE, FASTING 89 MG/DL (70-100); POTASSIUM SERUM 3.5 MEQ/L (3.5-5.1); SODIUM LEVEL 140 MEQ/L (136-145)
[2022-01-11] MEDS: ADVAIR HFA 115/21MCG INHALER INH SCH ×2 (07:32→20:06)
[2022-01-11] MEDS: DOCUSATE SODIUM 100MG CAPSULE PO SCH ×2 (08:52→20:59)
[2022-01-11] MEDS: ENOXAPARIN 40MG/0.4ML SYRINGE (J1650 PER 10MG) SC SCH (08:53)
[2022-01-11] MEDS: VORICONAZOLE 200MG TABLET (VFEND) PO SCH ×2 (08:53→20:59)
[2022-01-11] MEDS: amLODIPine 5 MG TAB PO SCH (08:53)
[2022-01-11] MEDS: FLUTICASONE PROP 0.05% NASAL SPRAY 16 GM (FLONASE) NARES SCH (08:53)
[2022-01-11] MEDS: predniSONE 20 MG TAB PO SCH (08:53)
[2022-01-11] MEDS: MONTELUKAST 10 MG TAB PO SCH (08:53)
[2022-01-11 14:00] VITALS: BP_SYST 106; BP_SYST 137; BP_DIAS 100; BP_DIAS 51
[2022-01-12] MEDS: IPRATROPIUM 0.5MG/ALBUTEROL 2.5MG INH SOL UD 3ML (DUONEB) NEB SCH ×3 (02:02→13:47)
[2022-01-12 04:56] VITALS: BP 142/87
[2022-01-12 06:39] LABS: HEMATOCRIT 44.2 % (42.0-52.0); HEMOGLOBIN 14.7 g/dl (13.5-17.5); MEAN CORPUSCULAR HEMOGLOBIN 30.5 pg (27.0-33.0); MEAN CORPUSCULAR HGB CONC 33.3 g/dl (32.0-36.5); MEAN CORPUSCULAR VOLUME 91.7 fl (80.0-96.0); PLATELET COUNT, AUTOMATED 209 10^3/uL (150-450); RED BLOOD COUNT 4.82 10^6/uL (4.30-6.10); WHITE BLOOD COUNT 17.2 10^3/uL (4.0-10.0)
[2022-01-12 07:01] LABS: BLOOD UREA NITROGEN 21 MG/DL (7-18); CALCIUM LEVEL 8.9 MG/DL (8.5-10.1); CARBON DIOXIDE LEVEL 32 MEQ/L (21-32); CHLORIDE LEVEL 99 MEQ/L (98-107); CREATININE FOR GFR 0.87 MG/DL (0.70-1.30); GLOMERULAR FILTRATION RATE > 60.0 (>56); GLUCOSE, FASTING 62 MG/DL (70-100); POTASSIUM SERUM 3.1 MEQ/L (3.5-5.1); SODIUM LEVEL 137 MEQ/L (136-145)
[2022-01-12] MEDS: ADVAIR HFA 115/21MCG INHALER INH SCH (07:32)
[2022-01-12] MEDS: FLUTICASONE PROP 0.05% NASAL SPRAY 16 GM (FLONASE) NARES SCH (08:58)
[2022-01-12] MEDS: VORICONAZOLE 200MG TABLET (VFEND) PO SCH (08:58)
[2022-01-12] MEDS: DOCUSATE SODIUM 100MG CAPSULE PO SCH (08:58)
[2022-01-12] MEDS: ENOXAPARIN 40MG/0.4ML SYRINGE (J1650 PER 10MG) SC SCH (08:58)
[2022-01-12] MEDS: predniSONE 20 MG TAB PO SCH (08:58)
[2022-01-12] MEDS: MONTELUKAST 10 MG TAB PO SCH (08:58)
[2022-01-12 09:01] VITALS: BP 148/88
[2022-01-12] MEDS: amLODIPine 5 MG TAB PO SCH (09:01)
[2022-01-12 14:00] VITALS: BP 152/92
[2022-01-12] MEDS ORDERED: SPOR1CAP PO (15:24)
== END 2022-01-12 16:30 | disposition home or self-care (01) | DRG 142 ==
LOC: M ED 23:41 → M ED INP 01-07 03:29 → ENRESERV 01-07 10:55 → M MSPAV 01-07 11:50
PROVIDERS: ADMIT Family Medicine; ATTEND Internal Medicine
DX: B44.81 Allergic bronchopulmonary aspergillosis (principal); J84.10 Pulmonary fibrosis, unspecified; B49 Unspecified mycosis; J45.901 Unspecified asthma with (acute) exacerbation; I10 Essential (primary) hypertension; J98.4 Other disorders of lung; J32.4 Chronic pansinusitis; J47.9 Bronchiectasis, uncomplicated; Z79.52 Long term (current) use of systemic steroids; Z79.899 Other long term (current) drug therapy

== ENCOUNTER 2022-03-21 11:38 | Inpatient (IN) | payer OTHER ==
[~2022-03-21] VITALS: Ht 170.2 cm; Wt 68.7 kg
[~2022-03-21 11:38] MED LIST changes: +ALBU6.7H6 INH; +AMLO1TAB24 PO; +AMLO1TAB25 PO; +BACT800T5 PO; +FLUTISP NARES; +GUAISYP5 PO; +LEVO1TAB40 PO; -PROV108A INH; +SPOR1CAP PO
[2022-03-21] MEDS ORDERED: COMBIVENT RESPIMAT 100-20MCG INHALER 4GM INH STA (12:11)
[2022-03-21] MEDS ORDERED: methylPREDNISolone 125MG 2ML VIAL IV ONE (12:15)
[2022-03-21 12:38] LABS: BASO # 0.1 10^3/uL (0.0-0.2); BASO % 0.7 % (0.0-1.0); EOS # 4.6 10^3/uL (0.0-0.5); HEMATOCRIT 42.4 % (42.0-52.0); HEMOGLOBIN 14.2 g/dl (13.5-17.5); LYMPH % 11.7 % (24.0-44.0); MEAN CORPUSCULAR HEMOGLOBIN 30.4 pg (27.0-33.0); MEAN CORPUSCULAR HGB CONC 33.5 g/dl (32.0-36.5); MEAN CORPUSCULAR VOLUME 90.8 fl (80.0-96.0); MONO % 5.9 % (2.0-8.0); NEUTROPHILS # 9.7 10^3/uL (1.5-8.5); NEUTROPHILS % 55.3 % (36.0-66.0); RED BLOOD COUNT 4.67 10^6/uL (4.30-6.10); WHITE BLOOD COUNT 17.5 10^3/uL (4.0-10.0)
[2022-03-21 12:39] LABS: VENOUS BASE EXCESS 2.6 (-2.0-2.0); VENOUS HCO3 30.3 MEQ/L (23.0-27.0); VENOUS O2 SATURATION 61.1 % (60.0-80.0); VENOUS PARTIAL PRESSURE CO2 59.1 mmHg (38.0-50.0); VENOUS PARTIAL PRESSURE O2 34.1 mmHg (30.0-50.0); VENOUS PH 7.327 UNITS (7.330-7.430); VENOUS STANDARD HCO3 25.7 MEQ/L; VENOUS TOTAL CO2 32.1 MEQ/L (24.0-28.0)
[2022-03-21 13:13] LABS: EOS % 26.1 % (0.0-3.0)
[2022-03-21 13:23] LABS: ALBUMIN 3.4 GM/DL (3.2-5.2); ALT/SGPT 14 U/L (12-78); BILIRUBIN,DIRECT 0.1 MG/DL (0.0-0.2); BILIRUBIN,TOTAL 0.4 MG/DL (0.2-1.0); BLOOD UREA NITROGEN 7 MG/DL (7-18); CALCIUM LEVEL 9.7 MG/DL (8.5-10.1); CARBON DIOXIDE LEVEL 31 MEQ/L (21-32); CHLORIDE LEVEL 101 MEQ/L (98-107); CREATININE FOR GFR 0.68 MG/DL (0.70-1.30); GLOMERULAR FILTRATION RATE > 60.0 (>56); GLUCOSE, FASTING 93 MG/DL (70-100); NT-PRO BNP 51 PG/ML (<125); POTASSIUM SERUM 3.9 MEQ/L (3.5-5.1); SODIUM LEVEL 136 MEQ/L (136-145); TOTAL PROTEIN 7.7 GM/DL (6.4-8.2)
[2022-03-21 13:35] LABS: RSV AMPLIFICATION NEGATIVE (NEGATIVE)
[2022-03-21] MEDS: IPRATROPIUM 0.5MG/ALBUTEROL 2.5MG INH SOL UD 3ML (DUONEB) NEB SCH ×2 (14:00→19:58)
[2022-03-21] MEDS ORDERED: FLON1SPR NARES (15:02)
[2022-03-21] MEDS ORDERED: HOME MED LIST COMPLETE! XX SCH (15:05)
[2022-03-21] MEDS ORDERED: AZITHROMYCIN INJ 500 MG, VIAL MATE ADAPTER 1 EACH in NS 250 ML IV SCH (16:00)
[2022-03-21] MEDS ORDERED: MAG SULF 1GM/100ML (MAG RUN) 1 GM in IV 1 EA IV ONE (16:00)
[2022-03-21 16:18] LABS: ABG BASE EXCESS 2.1 (-2.0-2.0); ABG O2 SATURATION 86.4 % (95.0-99.0); ABG PARTIAL PRESSURE CO2 43.2 mmHg (35.0-45.0); ABG PARTIAL PRESSURE O2 51.3 mmHg (75.0-100.0); ABG TOTAL CO2 28.3 MEQ/L (22.0-29.0); ABG pH (ARTERIAL) 7.414 UNITS (7.350-7.450)
[2022-03-21] MEDS ORDERED: FLUTICASONE PROP 0.05% NASAL SPRAY 16 GM (FLONASE) NARES PRN (17:00)
[2022-03-21] MEDS ORDERED: PANTOPRAZOLE 40MG TAB (PROTONIX) PO ONE (17:15)
[2022-03-21] MEDS ORDERED: NS IV ONE (18:00)
[2022-03-21] MEDS ORDERED: MAGNESIUM SULFATE IV ONE (18:00)
[2022-03-21 19:51] LABS: BASO # 0.1 10^3/uL (0.0-0.2); BASO % 0.4 % (0.0-1.0); EOS # 0.2 10^3/uL (0.0-0.5); EOS % 1.3 % (0.0-3.0); HEMATOCRIT 44.4 % (42.0-52.0); HEMOGLOBIN 15.1 g/dl (13.5-17.5); LYMPH % 6.4 % (24.0-44.0); MEAN CORPUSCULAR HEMOGLOBIN 30.3 pg (27.0-33.0); MONO # 0.1 10^3/uL (0.0-0.8); MONO % 0.6 % (2.0-8.0); NEUTROPHILS # 14.5 10^3/uL (1.5-8.5); NEUTROPHILS % 90.9 % (36.0-66.0); PLATELET COUNT, AUTOMATED 169 10^3/uL (150-450); RED BLOOD COUNT 4.99 10^6/uL (4.30-6.10)
[2022-03-21 20:10] VITALS: BP 140/47
[2022-03-21 20:26] VITALS: BP 138/95
[2022-03-21] MEDS ORDERED: ISOVUE-370 76% 100ML VIAL As Ordered ONE (21:19)
[2022-03-21] MEDS: ALBUTEROL SULFATE 2.5 MG/0.5 ML INH NEB SOLN NEB PRN (23:13)
[2022-03-22] MEDS: methylPREDNISolone 40MG 1ML VIAL IV SCH ×3 (00:09→21:05)
[2022-03-22] MEDS: IPRATROPIUM 0.5MG/ALBUTEROL 2.5MG INH SOL UD 3ML (DUONEB) NEB SCH ×4 (02:18→19:19)
[2022-03-22 06:00] VITALS: BP 138/95
[2022-03-22 06:31] LABS: HEMATOCRIT 43.7 % (42.0-52.0); HEMOGLOBIN 14.9 g/dl (13.5-17.5); MEAN CORPUSCULAR HEMOGLOBIN 30.7 pg (27.0-33.0); MEAN CORPUSCULAR HGB CONC 34.1 g/dl (32.0-36.5); MEAN CORPUSCULAR VOLUME 89.9 fl (80.0-96.0); PLATELET COUNT, AUTOMATED 242 10^3/uL (150-450); RED BLOOD COUNT 4.86 10^6/uL (4.30-6.10); WHITE BLOOD COUNT 22.4 10^3/uL (4.0-10.0)
[2022-03-22 07:16] LABS: BASO # 0.1 10^3/uL (0.0-0.2); BASO % 0.2 % (0.0-1.0); EOS % 0.1 % (0.0-3.0); LYMPH # 1.3 10^3/uL (1.5-5.0); MONO # 0.5 10^3/uL (0.0-0.8); MONO % 2.2 % (2.0-8.0); NEUTROPHILS # 19.7 10^3/uL (1.5-8.5); NEUTROPHILS % 90.8 % (36.0-66.0)
[2022-03-22 07:21] LABS: BLOOD UREA NITROGEN 14 MG/DL (7-18); CALCIUM LEVEL 9.9 MG/DL (8.5-10.1); CARBON DIOXIDE LEVEL 27 MEQ/L (21-32); CHLORIDE LEVEL 100 MEQ/L (98-107); CREATININE FOR GFR 0.73 MG/DL (0.70-1.30); GLOMERULAR FILTRATION RATE > 60.0 (>56); GLUCOSE, FASTING 159 MG/DL (70-100); POTASSIUM SERUM 4.7 MEQ/L (3.5-5.1); SODIUM LEVEL 134 MEQ/L (136-145)
[2022-03-22] MEDS: NICOTINE 14 MG/24 HR TRANSDERMAL TD SCH (09:00)
[2022-03-22] MEDS ORDERED: predniSONE 20 MG TAB PO SCH (09:00)
[2022-03-22] MEDS: ENOXAPARIN 40MG/0.4ML SYRINGE (J1650 PER 10MG) SC SCH (09:53)
[2022-03-22] MEDS: amLODIPine 5 MG TAB PO SCH (09:53)
[2022-03-22] MEDS: PANTOPRAZOLE 40MG TAB (PROTONIX) PO SCH (09:53)
[2022-03-22 10:00] VITALS: BP 137/93
[2022-03-22 14:00] VITALS: BP 140/80
[2022-03-22] MEDS: AZITHROMYCIN INJ 500 MG, VIAL MATE ADAPTER 1 EACH in NS 250 ML IV SCH (15:09)
[2022-03-22] MEDS ORDERED: VANCOMYCIN HCL 750 MG, VIAL MATE ADAPTER 1 EACH in D5W 250 ML IV ONE (17:00)
[2022-03-22 17:39] VITALS: BP 134/88
[2022-03-22] MEDS ORDERED: VANCOMYCIN HCL 500 MG in D5W MINI-BAG PLUS 100 ML IV ONE (18:00)
[2022-03-22] MEDS: CEFEPIME HCL 2 GM in D5W MINI-BAG PLUS 50 ML IV SCH (21:05)
[2022-03-22 21:10] VITALS: BP 129/87
[2022-03-22] MEDS: ALBUTEROL SULFATE 2.5 MG/0.5 ML INH NEB SOLN NEB PRN (21:24)
[2022-03-22] MEDS ORDERED: BENZONATATE 100MG CAPSULE PO PRN (21:25)
[2022-03-22] MEDS: guaiFENesin 200 MG TAB PO PRN (22:04)
[2022-03-22] MEDS ORDERED: LR 1,000 ML IV ONE (23:55)
[2022-03-23] MEDS ORDERED: VANCOMYCIN HCL 1,000 MG, VIAL MATE ADAPTER 1 EACH in D5W 250 ML IV SCH (02:00)
[2022-03-23] MEDS: IPRATROPIUM 0.5MG/ALBUTEROL 2.5MG INH SOL UD 3ML (DUONEB) NEB SCH ×4 (03:04→19:21)
[2022-03-23 04:00] VITALS: BP 156/90
[2022-03-23 05:41] LABS: HEMATOCRIT 41.4 % (42.0-52.0); HEMOGLOBIN 13.7 g/dl (13.5-17.5); MEAN CORPUSCULAR HEMOGLOBIN 30.3 pg (27.0-33.0); MEAN CORPUSCULAR HGB CONC 33.1 g/dl (32.0-36.5); MEAN CORPUSCULAR VOLUME 91.6 fl (80.0-96.0); PLATELET COUNT, AUTOMATED 202 10^3/uL (150-450); RED BLOOD COUNT 4.52 10^6/uL (4.30-6.10)
[2022-03-23 05:46] LABS: WHITE BLOOD COUNT 31.6 10^3/uL (4.0-10.0)
[2022-03-23 06:00] VITALS: BP 152/97
[2022-03-23] MEDS: CEFEPIME HCL 2 GM in D5W MINI-BAG PLUS 50 ML IV SCH ×3 (06:13→22:25)
[2022-03-23 06:28] LABS: BLOOD UREA NITROGEN 15 MG/DL (7-18); CALCIUM LEVEL 9.4 MG/DL (8.5-10.1); CARBON DIOXIDE LEVEL 28 MEQ/L (21-32); CHLORIDE LEVEL 103 MEQ/L (98-107); CREATININE FOR GFR 0.68 MG/DL (0.70-1.30); GLOMERULAR FILTRATION RATE > 60.0 (>56); GLUCOSE, FASTING 103 MG/DL (70-100); POTASSIUM SERUM 4.4 MEQ/L (3.5-5.1); SODIUM LEVEL 137 MEQ/L (136-145)
[2022-03-23 06:57] LABS: BASO # 0.1 10^3/uL (0.0-0.2); BASO % 0.2 % (0.0-1.0); LYMPH # 1.5 10^3/uL (1.5-5.0); LYMPH % 4.9 % (24.0-44.0); MONO # 1.3 10^3/uL (0.0-0.8); MONO % 4.2 % (2.0-8.0); NEUTROPHILS # 26.9 10^3/uL (1.5-8.5); NEUTROPHILS % 89.6 % (36.0-66.0); WHITE BLOOD COUNT 29.9 10^3/uL (4.0-10.0)
[2022-03-23] MEDS: amLODIPine 5 MG TAB PO SCH (08:43)
[2022-03-23] MEDS: PANTOPRAZOLE 40MG TAB (PROTONIX) PO SCH (08:43)
[2022-03-23] MEDS: methylPREDNISolone 40MG 1ML VIAL IV SCH ×2 (08:43→21:20)
[2022-03-23] MEDS: ENOXAPARIN 40MG/0.4ML SYRINGE (J1650 PER 10MG) SC SCH (08:44)
[2022-03-23] MEDS: NICOTINE 14 MG/24 HR TRANSDERMAL TD SCH (08:45)
[2022-03-23 10:00] VITALS: BP 147/113
[2022-03-23] MEDS ORDERED: ISOVUE-370 76% 100ML VIAL As Ordered ONE (10:54)
[2022-03-23] MEDS: guaiFENesin 200 MG TAB PO PRN ×3 (13:09→23:18)
[2022-03-23 14:00] VITALS: BP 145/108
[2022-03-23] MEDS: VANCOMYCIN HCL 1,000 MG, VIAL MATE ADAPTER 1 EACH in D5W 250 ML IV SCH ×2 (15:51→23:06)
[2022-03-23] MEDS: AZITHROMYCIN INJ 500 MG, VIAL MATE ADAPTER 1 EACH in NS 250 ML IV SCH (17:03)
[2022-03-23 20:00] VITALS: BP 141/103
[2022-03-24] VITALS (7 sets, daily range): BP systolic 122–142; BP diastolic 83–108
[2022-03-24] MEDS: IPRATROPIUM 0.5MG/ALBUTEROL 2.5MG INH SOL UD 3ML (DUONEB) NEB SCH ×4 (02:57→19:31)
[2022-03-24] MEDS: guaiFENesin 200 MG TAB PO PRN (06:17)
[2022-03-24] MEDS: CEFEPIME HCL 2 GM in D5W MINI-BAG PLUS 50 ML IV SCH ×2 (06:17→14:32)
[2022-03-24 06:49] LABS: HEMATOCRIT 40.6 % (42.0-52.0); HEMOGLOBIN 13.3 g/dl (13.5-17.5); MEAN CORPUSCULAR HEMOGLOBIN 30.2 pg (27.0-33.0); MEAN CORPUSCULAR HGB CONC 32.8 g/dl (32.0-36.5); MEAN CORPUSCULAR VOLUME 92.3 fl (80.0-96.0); PLATELET COUNT, AUTOMATED 184 10^3/uL (150-450); WHITE BLOOD COUNT 24.3 10^3/uL (4.0-10.0)
[2022-03-24] MEDS: VANCOMYCIN HCL 1,000 MG, VIAL MATE ADAPTER 1 EACH in D5W 250 ML IV SCH ×2 (07:04→15:19)
[2022-03-24 07:28] LABS: BLOOD UREA NITROGEN 15 MG/DL (7-18); CALCIUM LEVEL 9.1 MG/DL (8.5-10.1); CARBON DIOXIDE LEVEL 29 MEQ/L (21-32); CHLORIDE LEVEL 102 MEQ/L (98-107); CREATININE FOR GFR 0.67 MG/DL (0.70-1.30); GLOMERULAR FILTRATION RATE > 60.0 (>56); GLUCOSE, FASTING 128 MG/DL (70-100); POTASSIUM SERUM 3.7 MEQ/L (3.5-5.1); SODIUM LEVEL 137 MEQ/L (136-145); VANCOMYCIN LEVEL TROUGH 12.1 UG/ML (10.0-20.0)
[2022-03-24] MEDS: methylPREDNISolone 40MG 1ML VIAL IV SCH ×2 (08:17→21:08)
[2022-03-24] MEDS: amLODIPine 5 MG TAB PO SCH (08:18)
[2022-03-24] MEDS: PANTOPRAZOLE 40MG TAB (PROTONIX) PO SCH (08:18)
[2022-03-24] MEDS: ENOXAPARIN 40MG/0.4ML SYRINGE (J1650 PER 10MG) SC SCH (08:18)
[2022-03-24 11:07] LABS: CORTISOL BASELINE 15.7 UG/DL (4.3-22.4)
[2022-03-24] MEDS ORDERED: cefTRIAXone SOD 2 GM in D5W MINI-BAG PLUS 50 ML IV SCH (22:00)
[2022-03-25] MEDS: IPRATROPIUM 0.5MG/ALBUTEROL 2.5MG INH SOL UD 3ML (DUONEB) NEB SCH ×3 (00:50→13:55)
[2022-03-25 01:06] VITALS: BP 142/97
[2022-03-25 04:00] VITALS: BP 140/97
[2022-03-25 06:16] LABS: BASO # 0.1 10^3/uL (0.0-0.2); BASO % 0.3 % (0.0-1.0); HEMOGLOBIN 13.3 g/dl (13.5-17.5); LYMPH # 1.4 10^3/uL (1.5-5.0); LYMPH % 6.1 % (24.0-44.0); MEAN CORPUSCULAR HEMOGLOBIN 30.2 pg (27.0-33.0); MEAN CORPUSCULAR HGB CONC 33.3 g/dl (32.0-36.5); MEAN CORPUSCULAR VOLUME 90.7 fl (80.0-96.0); MONO # 0.9 10^3/uL (0.0-0.8); NEUTROPHILS # 19.5 10^3/uL (1.5-8.5); PLATELET COUNT, AUTOMATED 231 10^3/uL (150-450); RED BLOOD COUNT 4.41 10^6/uL (4.30-6.10); WHITE BLOOD COUNT 22.2 10^3/uL (4.0-10.0)
[2022-03-25 06:49] LABS: BLOOD UREA NITROGEN 18 MG/DL (7-18); CALCIUM LEVEL 9.1 MG/DL (8.5-10.1); CARBON DIOXIDE LEVEL 30 MEQ/L (21-32); CHLORIDE LEVEL 101 MEQ/L (98-107); CREATININE FOR GFR 0.59 MG/DL (0.70-1.30); GLOMERULAR FILTRATION RATE > 60.0 (>56); GLUCOSE, FASTING 113 MG/DL (70-100); POTASSIUM SERUM 4.1 MEQ/L (3.5-5.1); SODIUM LEVEL 136 MEQ/L (136-145)
[2022-03-25 08:05] LABS: VITAMIN B12 LEVEL 699 PG/ML (247-911)
[2022-03-25 10:00] VITALS: BP 145/95
[2022-03-25 10:31] VITALS: BP 146/100
[2022-03-25] MEDS: PANTOPRAZOLE 40MG TAB (PROTONIX) PO SCH (10:31)
[2022-03-25] MEDS: amLODIPine 5 MG TAB PO SCH (10:31)
[2022-03-25] MEDS: ENOXAPARIN 40MG/0.4ML SYRINGE (J1650 PER 10MG) SC SCH (10:32)
[2022-03-25] MEDS: methylPREDNISolone 40MG 1ML VIAL IV SCH (10:32)
[2022-03-25] MEDS ORDERED: COMBAER6 INH ×2 (12:41→14:22)
[2022-03-25] MEDS ORDERED: ADV500INH INH (12:41)
[2022-03-25] MEDS ORDERED: AIRD1INH3 INH (13:57)
[2022-03-25] MEDS ORDERED: CEFD300C41 PO (13:57)
[2022-03-25] MEDS ORDERED: PRED10TA2 PO (13:57)
[2022-03-25 14:00] VITALS: BP 141/99
[2022-03-26 14:09] LABS: CHLAMYDIA PNEUMONIAE IgM <1:10 (Neg:<1:10)
== END 2022-03-25 16:10 | disposition home or self-care (01) | DRG 133 ==
LOC: M ED 11:38 → M ED INP 11:39 → M MSPAV 20:14 → OBSVTOIN 03-23 09:57
PROVIDERS: ADMIT Internal Medicine; ATTEND Internal Medicine
DX: J96.01 Acute respiratory failure with hypoxia (principal); J13 Pneumonia due to Streptococcus pneumoniae; D72.19 Other eosinophilia; J45.901 Unspecified asthma with (acute) exacerbation; I10 Essential (primary) hypertension; Z20.822 Contact with and (suspected) exposure to COVID-19; D72.829 Elevated white blood cell count, unspecified; Z79.51 Long term (current) use of inhaled steroids; Z79.899 Other long term (current) drug therapy

== ENCOUNTER 2022-04-21 12:03 | Emergency (ER) | payer OTHER ==
[~2022-04-21] VITALS: Ht 170.2 cm; Wt 70.0 kg
[~2022-04-21 12:03] MED LIST changes: +ADV500INH INH; +AIRD1INH3 INH; +CEFD300C41 PO; +COMBAER6 INH; +FLON1SPR NARES
[2022-04-21 13:54] VITALS: BP 147/100
== END 2022-04-21 13:55 | disposition home or self-care (01) ==
LOC: M ED 12:03
DX: F15.10 Other stimulant abuse, uncomplicated (principal); F17.200 Nicotine dependence, unspecified, uncomplicated

== ENCOUNTER 2022-05-06 01:14 | Emergency (ER) | payer OTHER ==
[~2022-05-06] VITALS: Ht 170.2 cm; Wt 69.9 kg
[2022-05-06 03:09] LABS: BASO # 0.1 10^3/uL (0.0-0.2); BASO % 0.9 % (0.0-1.0); EOS # 1.4 10^3/uL (0.0-0.5); EOS % 14.2 % (0.0-3.0); HEMATOCRIT 39.7 % (42.0-52.0); HEMOGLOBIN 13.4 g/dl (13.5-17.5); LYMPH # 1.5 10^3/uL (1.5-5.0); LYMPH % 14.7 % (24.0-44.0); MEAN CORPUSCULAR HGB CONC 33.8 g/dl (32.0-36.5); MEAN CORPUSCULAR VOLUME 91.9 fl (80.0-96.0); MONO # 0.6 10^3/uL (0.0-0.8); MONO % 6.3 % (2.0-8.0); NEUTROPHILS # 6.4 10^3/uL (1.5-8.5); NEUTROPHILS % 63.7 % (36.0-66.0); PLATELET COUNT, AUTOMATED 154 10^3/uL (150-450); RED BLOOD COUNT 4.32 10^6/uL (4.30-6.10); WHITE BLOOD COUNT 10.1 10^3/uL (4.0-10.0)
[2022-05-06 03:20] LABS: INR 0.95; PROTHROMBIN TIME 12.9 SECONDS (12.5-14.5)
[2022-05-06] MEDS ORDERED: IPRATROPIUM 0.5MG/ALBUTEROL 2.5MG INH SOL UD 3ML (DUONEB) NEB ONE (03:35)
[2022-05-06] MEDS ORDERED: methylPREDNISolone 125MG 2ML VIAL IM ONE (03:35)
[2022-05-06 03:44] LABS: CK-MB VALUE MASS 1.4 NG/ML (<3.6); MB/CK RELATIVE INDEX 3.04 (< OR =4)
[2022-05-06 03:50] LABS: ALBUMIN 3.3 GM/DL (3.2-5.2); ALT/SGPT 18 U/L (12-78); BILIRUBIN,DIRECT < 0.1 MG/DL (0.0-0.2); BILIRUBIN,TOTAL 0.2 MG/DL (0.2-1.0); BLOOD UREA NITROGEN 6 MG/DL (7-18); CALCIUM LEVEL 8.6 MG/DL (8.5-10.1); CARBON DIOXIDE LEVEL 28 MEQ/L (21-32); CHLORIDE LEVEL 103 MEQ/L (98-107); CREATININE FOR GFR 0.72 MG/DL (0.70-1.30); GLOMERULAR FILTRATION RATE > 60.0 (>56); GLUCOSE, FASTING 100 MG/DL (70-100); NT-PRO BNP 53 PG/ML (<125); POTASSIUM SERUM 3.7 MEQ/L (3.5-5.1); SODIUM LEVEL 138 MEQ/L (136-145); THYROID STIMULATING HORMONE 0.745 uIU/ML (0.358-3.740); TOTAL PROTEIN 6.9 GM/DL (6.4-8.2)
[2022-05-06 06:30] VITALS: BP 132/84
[2022-05-06] MEDS ORDERED: AZIT500T5 PO (06:37)
[2022-05-06] MEDS ORDERED: PRED20TA PO (06:37)
[2022-05-06 07:07] LABS: CK-MB VALUE MASS 1.2 NG/ML (<3.6); MB/CK RELATIVE INDEX 2.93 (< OR =4)
== END 2022-05-06 07:18 | disposition home or self-care (01) ==
LOC: M ED 01:14
DX: J44.1 Chronic obstructive pulmonary disease with (acute) exacerbation (principal); R94.31 Abnormal electrocardiogram [ECG] [EKG]; R06.02 Shortness of breath; Z87.09 Personal history of other diseases of the respiratory system; F17.200 Nicotine dependence, unspecified, uncomplicated; Z79.899 Other long term (current) drug therapy
CPT/HCPCS: 36415; 71045; 80048; 80076; 82550; 82553; 83605; 83880; 84443; 85025; 85610; 87040; 87486; 87581; 87633; 87798; 93005; 93041; 94640; 94760; 96372; 99285; J2930

== ENCOUNTER 2022-05-17 11:52 | Inpatient (IN) | payer OTHER ==
[~2022-05-17] VITALS: Ht 170.2 cm; Wt 67.3 kg
[~2022-05-17 11:52] MED LIST changes: +AZIT500T5 PO
[2022-05-17] MEDS ORDERED: methylPREDNISolone 125MG 2ML VIAL IV ONE (12:15)
[2022-05-17] MEDS ORDERED: COMBIVENT RESPIMAT 100-20MCG INHALER 4GM INH STA (12:15)
[2022-05-17 12:38] LABS: ABG BASE EXCESS 0.6 (-2.0-2.0); ABG O2 SATURATION 96.9 % (95.0-99.0); ABG PARTIAL PRESSURE CO2 44.2 mmHg (35.0-45.0); ABG PARTIAL PRESSURE O2 91.5 mmHg (75.0-100.0); ABG TOTAL CO2 27.3 MEQ/L (22.0-29.0); ABG pH (ARTERIAL) 7.387 UNITS (7.350-7.450)
[2022-05-17 13:33] LABS: BASO # 0.1 10^3/uL (0.0-0.2); BASO % 0.7 % (0.0-1.0); EOS # 1.6 10^3/uL (0.0-0.5); HEMATOCRIT 42.4 % (42.0-52.0); HEMOGLOBIN 14.1 g/dl (13.5-17.5); LYMPH # 1.2 10^3/uL (1.5-5.0); LYMPH % 9.4 % (24.0-44.0); MEAN CORPUSCULAR HEMOGLOBIN 30.9 pg (27.0-33.0); MEAN CORPUSCULAR HGB CONC 33.3 g/dl (32.0-36.5); MEAN CORPUSCULAR VOLUME 92.8 fl (80.0-96.0); MONO % 7.8 % (2.0-8.0); NEUTROPHILS # 8.5 10^3/uL (1.5-8.5); NEUTROPHILS % 68.9 % (36.0-66.0); PLATELET COUNT, AUTOMATED 199 10^3/uL (150-450); RED BLOOD COUNT 4.57 10^6/uL (4.30-6.10); WHITE BLOOD COUNT 12.3 10^3/uL (4.0-10.0)
[2022-05-17 14:09] LABS: ALBUMIN 3.2 GM/DL (3.2-5.2); ALT/SGPT 21 U/L (12-78); BILIRUBIN,DIRECT 0.1 MG/DL (0.0-0.2); BILIRUBIN,TOTAL 0.3 MG/DL (0.2-1.0); BLOOD UREA NITROGEN 11 MG/DL (7-18); CALCIUM LEVEL 8.8 MG/DL (8.5-10.1); CARBON DIOXIDE LEVEL 30 MEQ/L (21-32); CHLORIDE LEVEL 104 MEQ/L (98-107); CREATININE FOR GFR 0.58 MG/DL (0.70-1.30); GLOMERULAR FILTRATION RATE > 60.0 (>56); GLUCOSE, FASTING 106 MG/DL (70-100); NT-PRO BNP 30 PG/ML (<125); POTASSIUM SERUM 3.5 MEQ/L (3.5-5.1); SODIUM LEVEL 136 MEQ/L (136-145); THYROXINE (T4) 9.7 UG/DL (4.5-12.0); TOTAL PROTEIN 7.3 GM/DL (6.4-8.2)
[2022-05-17] MEDS ORDERED: AIRD1INH3 INH (14:52)
[2022-05-17] MEDS ORDERED: COMBAER6 INH (14:52)
[2022-05-17] MEDS ORDERED: HOME MED LIST COMPLETE! XX SCH (14:55)
[2022-05-17] MEDS: amLODIPine 5 MG TAB PO SCH (16:41)
[2022-05-17] MEDS: AZITHROMYCIN 250MG TABLET PO SCH (16:41)
[2022-05-17] MEDS: IPRATROPIUM 0.5MG/ALBUTEROL 2.5MG INH SOL UD 3ML (DUONEB) NEB SCH ×3 (16:42→23:18)
[2022-05-17 17:10] VITALS: BP 140/88
[2022-05-17 19:28] VITALS: BP 139/92
[2022-05-17] MEDS ORDERED: methylPREDNISolone 125MG 2ML VIAL IV SCH (21:00)
[2022-05-17] MEDS: guaiFENesin ER 600 MG TAB PO SCH (21:45)
[2022-05-17] MEDS: ENOXAPARIN 40MG/0.4ML SYRINGE (J1650 PER 10MG) SC SCH (21:46)
[2022-05-17 21:53] VITALS: BP 142/93
[2022-05-18] MEDS: BENZONATATE 100MG CAPSULE PO PRN ×2 (00:38→20:35)
[2022-05-18] MEDS: IPRATROPIUM 0.5MG/ALBUTEROL 2.5MG INH SOL UD 3ML (DUONEB) NEB SCH ×2 (03:17→07:50)
[2022-05-18 05:50] VITALS: BP 140/93
[2022-05-18 06:44] LABS: HEMATOCRIT 41.7 % (42.0-52.0); HEMOGLOBIN 13.6 g/dl (13.5-17.5); MEAN CORPUSCULAR HEMOGLOBIN 30.1 pg (27.0-33.0); MEAN CORPUSCULAR HGB CONC 32.6 g/dl (32.0-36.5); MEAN CORPUSCULAR VOLUME 92.3 fl (80.0-96.0); RED BLOOD COUNT 4.52 10^6/uL (4.30-6.10); WHITE BLOOD COUNT 17.2 10^3/uL (4.0-10.0)
[2022-05-18 07:13] LABS: BLOOD UREA NITROGEN 10 MG/DL (7-18); CALCIUM LEVEL 9.3 MG/DL (8.5-10.1); CARBON DIOXIDE LEVEL 27 MEQ/L (21-32); CHLORIDE LEVEL 103 MEQ/L (98-107); CREATININE FOR GFR 0.61 MG/DL (0.70-1.30); GLOMERULAR FILTRATION RATE > 60.0 (>56); GLUCOSE, FASTING 137 MG/DL (70-100); POTASSIUM SERUM 4.2 MEQ/L (3.5-5.1); SODIUM LEVEL 138 MEQ/L (136-145)
[2022-05-18] MEDS: predniSONE 20 MG TAB PO SCH (08:46)
[2022-05-18] MEDS: amLODIPine 5 MG TAB PO SCH (08:46)
[2022-05-18] MEDS: guaiFENesin ER 600 MG TAB PO SCH ×2 (08:46→20:35)
[2022-05-18] MEDS: AZITHROMYCIN 250MG TABLET PO SCH (08:46)
[2022-05-18] MEDS ORDERED: FLUBLOK(EGG FREE)(QUAD)INFLUENZA VACC 0.5ML SYRINGE 18YRS & OLDER IM.IMMUN ONE (09:00)
[2022-05-18] MEDS: BUDESONIDE 0.25 MG/2 ML INHALATION SUSPENSION INH SCH ×2 (11:48→20:57)
[2022-05-18] MEDS: LEVALBUTEROL 1.25 MG/0.5 ML CONCENTRATE NEB INH SCH ×4 (11:48→23:03)
[2022-05-18 14:08] VITALS: BP 140/93
[2022-05-18 20:00] VITALS: BP 143/96
[2022-05-18] MEDS: ENOXAPARIN 40MG/0.4ML SYRINGE (J1650 PER 10MG) SC SCH (20:36)
[2022-05-19] MEDS: LEVALBUTEROL 1.25 MG/0.5 ML CONCENTRATE NEB INH SCH ×2 (03:22→08:14)
[2022-05-19 06:00] VITALS: BP 149/92
[2022-05-19 07:08] LABS: BASO # 0.1 10^3/uL (0.0-0.2); BASO % 0.2 % (0.0-1.0); EOS # 0.1 10^3/uL (0.0-0.5); EOS % 0.3 % (0.0-3.0); HEMATOCRIT 43.8 % (42.0-52.0); LYMPH # 2.5 10^3/uL (1.5-5.0); LYMPH % 7.9 % (24.0-44.0); MEAN CORPUSCULAR HEMOGLOBIN 30.4 pg (27.0-33.0); MEAN CORPUSCULAR VOLUME 95.2 fl (80.0-96.0); MONO # 1.5 10^3/uL (0.0-0.8); MONO % 4.6 % (2.0-8.0); NEUTROPHILS % 86.4 % (36.0-66.0)
[2022-05-19 07:30] LABS: BLOOD UREA NITROGEN 20 MG/DL (7-18); CALCIUM LEVEL 9.2 MG/DL (8.5-10.1); CARBON DIOXIDE LEVEL 29 MEQ/L (21-32); CHLORIDE LEVEL 100 MEQ/L (98-107); CREATININE FOR GFR 0.75 MG/DL (0.70-1.30); GLOMERULAR FILTRATION RATE > 60.0 (>56); GLUCOSE, FASTING 69 MG/DL (70-100); SODIUM LEVEL 137 MEQ/L (136-145)
[2022-05-19] MEDS: BUDESONIDE 0.25 MG/2 ML INHALATION SUSPENSION INH SCH (08:14)
[2022-05-19] MEDS ORDERED: POTASSIUM CHLORIDE 10MEQ SR TABLET PO ONE (08:15)
[2022-05-19 08:43] LABS: WHITE BLOOD COUNT 31.3 10^3/uL (4.0-10.0)
[2022-05-19 08:46] LABS: MAGNESIUM LEVEL 2.1 MG/DL (1.8-2.4)
[2022-05-19 08:59] VITALS: BP 144/96
[2022-05-19] MEDS: amLODIPine 5 MG TAB PO SCH (08:59)
[2022-05-19] MEDS: AZITHROMYCIN 250MG TABLET PO SCH (08:59)
[2022-05-19] MEDS: predniSONE 20 MG TAB PO SCH (08:59)
[2022-05-19] MEDS: guaiFENesin ER 600 MG TAB PO SCH (08:59)
[2022-05-19] MEDS ORDERED: AMLO1TAB24 PO (09:50)
[2022-05-19] MEDS ORDERED: BENZ-18 PO (09:50)
[2022-05-19] MEDS ORDERED: PRED10TA2 PO (09:50)
[2022-05-19] MEDS ORDERED: AZIT-12 PO (09:50)
== END 2022-05-19 12:17 | disposition home or self-care (01) | DRG 133 ==
LOC: M ED 11:52 → M ED INP 15:32 → EEVIPCON 15:32 → ENRESERV 16:03 → M MSPAV 17:07
PROVIDERS: ADMIT Internal Medicine; ATTEND Internal Medicine
DX: J96.01 Acute respiratory failure with hypoxia (principal); I27.20 Pulmonary hypertension, unspecified; D72.10 Eosinophilia, unspecified; J44.1 Chronic obstructive pulmonary disease with (acute) exacerbation; J45.901 Unspecified asthma with (acute) exacerbation; Z91.14 Patient's other noncompliance with medication regimen; D72.829 Elevated white blood cell count, unspecified; I10 Essential (primary) hypertension; Z79.899 Other long term (current) drug therapy

== ENCOUNTER 2022-06-04 22:11 | Inpatient (IN) | payer OTHER ==
[~2022-06-04] VITALS: Ht 170.2 cm; Wt 80.4 kg
[~2022-06-04 22:11] MED LIST changes: +BENZ-18 PO
[2022-06-04] MEDS: COMBIVENT RESPIMAT 100-20MCG INHALER 4GM INH SCH ×2 (22:40→22:41)
[2022-06-04] MEDS ORDERED: methylPREDNISolone 125MG 2ML VIAL IV ONE (22:50)
[2022-06-04 23:41] LABS: VENOUS BASE EXCESS 0.2 (-2.0-2.0); VENOUS HCO3 25.1 MEQ/L (23.0-27.0); VENOUS O2 SATURATION 99.3 % (60.0-80.0); VENOUS PARTIAL PRESSURE CO2 41.4 mmHg (38.0-50.0); VENOUS PARTIAL PRESSURE O2 154.1 mmHg (30.0-50.0); VENOUS STANDARD HCO3 24.7 MEQ/L; VENOUS TOTAL CO2 26.3 MEQ/L (24.0-28.0)
[2022-06-05] VITALS (8 sets, daily range): BP systolic 144–152; BP diastolic 96–114; O2SAT 94
[2022-06-05 00:15] LABS: ALBUMIN 3.3 G/DL (3.2-5.2); ALT/SGPT 14 U/L (7.0-40); BILIRUBIN,DIRECT 0.2 MG/DL (<0.4); BILIRUBIN,TOTAL 0.8 MG/DL (0.3-1.2); CK-MB VALUE MASS 1.4 NG/ML (<3.6); MB/CK RELATIVE INDEX 2.5 (< OR =4); TOTAL PROTEIN 6.1 G/DL (5.7-8.2)
[2022-06-05 00:21] LABS: BASO # 0.1 10^3/uL (0.0-0.2); BASO % 0.9 % (0.0-1.0); EOS % 16.8 % (0.0-3.0); HEMATOCRIT 41.2 % (42.0-52.0); HEMOGLOBIN 13.9 g/dl (13.5-17.5); LYMPH # 0.9 10^3/uL (1.5-5.0); LYMPH % 15.3 % (24.0-44.0); MEAN CORPUSCULAR HEMOGLOBIN 30.1 pg (27.0-33.0); MEAN CORPUSCULAR HGB CONC 33.7 g/dl (32.0-36.5); MEAN CORPUSCULAR VOLUME 89.2 fl (80.0-96.0); MONO # 0.6 10^3/uL (0.0-0.8); MONO % 10.2 % (2.0-8.0); NEUTROPHILS # 3.2 10^3/uL (1.5-8.5); NEUTROPHILS % 56.4 % (36.0-66.0); RED BLOOD COUNT 4.62 10^6/uL (4.30-6.10); WHITE BLOOD COUNT 5.7 10^3/uL (4.0-10.0)
[2022-06-05 01:44] LABS: BLOOD UREA NITROGEN 7 MG/DL (9-23); CARBON DIOXIDE LEVEL 25 MMOL/L (20-31); CHLORIDE LEVEL 106 MMOL/L (98-107); CREATININE FOR GFR 0.53 MG/DL (0.70-1.30); GLOMERULAR FILTRATION RATE > 60.0 (>56); GLUCOSE, FASTING 86 MG/DL (60-100); POTASSIUM SERUM 3.8 MMOL/L (3.5-5.1); SODIUM LEVEL 140 MMOL/L (136-145)
[2022-06-05] MEDS ORDERED: ACETAMINOPHEN TAB 650MG DOSE (2X325MG) PO PRN (02:55)
[2022-06-05] MEDS ORDERED: NS 1,000 ML IV SCH (02:55)
[2022-06-05] MEDS ORDERED: AMLO1TAB24 PO (04:38)
[2022-06-05] MEDS ORDERED: HOME MED LIST COMPLETE! XX SCH (04:40)
[2022-06-05] MEDS ORDERED: LORazepam 2 MG/ML VIAL IV PRN (06:00)
[2022-06-05] MEDS: IPRATROPIUM 0.5MG/ALBUTEROL 2.5MG INH SOL UD 3ML (DUONEB) NEB SCH ×3 (06:11→19:12)
[2022-06-05 07:34] LABS: BLOOD UREA NITROGEN 9 MG/DL (9-23); CALCIUM LEVEL 9.3 MG/DL (8.5-10.1); CARBON DIOXIDE LEVEL 26 MMOL/L (20-31); CHLORIDE LEVEL 99 MMOL/L (98-107); CREATININE FOR GFR 0.59 MG/DL (0.70-1.30); GLOMERULAR FILTRATION RATE > 60.0 (>56); GLUCOSE, FASTING 219 MG/DL (60-100); POTASSIUM SERUM 4.1 MMOL/L (3.5-5.1); SODIUM LEVEL 137 MMOL/L (136-145)
[2022-06-05] MEDS: methylPREDNISolone 40MG 1ML VIAL IV SCH ×2 (08:06→16:57)
[2022-06-05] MEDS: ADVAIR HFA 230/21MCG INHALER INH SCH ×2 (08:13→19:12)
[2022-06-05 08:44] LABS: BASO % 0.4 % (0.0-1.0); EOS % 0.7 % (0.0-3.0); HEMATOCRIT 44.6 % (42.0-52.0); LYMPH # 0.6 10^3/uL (1.5-5.0); LYMPH % 12.7 % (24.0-44.0); MEAN CORPUSCULAR HEMOGLOBIN 30.3 pg (27.0-33.0); MEAN CORPUSCULAR HGB CONC 33.6 g/dl (32.0-36.5); MEAN CORPUSCULAR VOLUME 90.1 fl (80.0-96.0); MONO # 0.1 10^3/uL (0.0-0.8); MONO % 1.8 % (2.0-8.0); NEUTROPHILS # 3.8 10^3/uL (1.5-8.5); NEUTROPHILS % 84.2 % (36.0-66.0); RED BLOOD COUNT 4.95 10^6/uL (4.30-6.10); WHITE BLOOD COUNT 4.5 10^3/uL (4.0-10.0)
[2022-06-05] MEDS: guaiFENesin ER 600 MG TAB PO SCH ×2 (09:00→19:43)
[2022-06-05] MEDS: HEPARIN SOD (PORCINE) 5000UNITS/ML 1ML VIAL/SYRINGE SC SCH ×2 (14:00→21:09)
[2022-06-05] MEDS: ALBUTEROL SULFATE 2.5 MG/0.5 ML INH NEB SOLN NEB PRN ×2 (17:29→21:55)
[2022-06-05] MEDS: BENZONATATE 100MG CAPSULE PO PRN (18:39)
[2022-06-06] MEDS: methylPREDNISolone 40MG 1ML VIAL IV SCH ×2 (00:11→09:06)
[2022-06-06] MEDS: IPRATROPIUM 0.5MG/ALBUTEROL 2.5MG INH SOL UD 3ML (DUONEB) NEB SCH ×4 (01:17→20:46)
[2022-06-06] MEDS: HEPARIN SOD (PORCINE) 5000UNITS/ML 1ML VIAL/SYRINGE SC SCH ×3 (05:44→20:53)
[2022-06-06 05:45] VITALS: BP 114/74
[2022-06-06 07:17] LABS: BASO % 0.1 % (0.0-1.0); HEMATOCRIT 41.1 % (42.0-52.0); HEMOGLOBIN 13.7 g/dl (13.5-17.5); LYMPH % 4.7 % (24.0-44.0); MEAN CORPUSCULAR HEMOGLOBIN 30.2 pg (27.0-33.0); MEAN CORPUSCULAR HGB CONC 33.3 g/dl (32.0-36.5); MEAN CORPUSCULAR VOLUME 90.5 fl (80.0-96.0); MONO # 0.5 10^3/uL (0.0-0.8); MONO % 2.4 % (2.0-8.0); NEUTROPHILS # 18.6 10^3/uL (1.5-8.5); NEUTROPHILS % 92.2 % (36.0-66.0); PLATELET COUNT, AUTOMATED 171 10^3/uL (150-450); RED BLOOD COUNT 4.54 10^6/uL (4.30-6.10); WHITE BLOOD COUNT 20.2 10^3/uL (4.0-10.0)
[2022-06-06 07:44] LABS: BLOOD UREA NITROGEN 13 MG/DL (9-23); CALCIUM LEVEL 9.7 MG/DL (8.5-10.1); CARBON DIOXIDE LEVEL 28 MMOL/L (20-31); CHLORIDE LEVEL 102 MMOL/L (98-107); CREATININE FOR GFR 0.53 MG/DL (0.70-1.30); GLOMERULAR FILTRATION RATE > 60.0 (>56); GLUCOSE, FASTING 125 MG/DL (60-100); MAGNESIUM LEVEL 1.9 MG/DL (1.8-2.4); POTASSIUM SERUM 4.6 MMOL/L (3.5-5.1); SODIUM LEVEL 139 MMOL/L (136-145)
[2022-06-06] MEDS: ADVAIR HFA 230/21MCG INHALER INH SCH ×2 (08:43→20:47)
[2022-06-06] MEDS: BENZONATATE 100MG CAPSULE PO PRN (09:06)
[2022-06-06] MEDS: guaiFENesin ER 600 MG TAB PO SCH ×2 (09:06→20:52)
[2022-06-06 14:00] VITALS: BP 141/98
[2022-06-06] MEDS: PANTOPRAZOLE 40MG TAB (PROTONIX) PO SCH (14:52)
[2022-06-06] MEDS: methylPREDNISolone 125MG 2ML VIAL IV SCH ×2 (14:53→20:53)
[2022-06-06] MEDS ORDERED: LevoFLOXacin IV 750 MG in IV 1 EA IV SCH (15:00)
[2022-06-06 20:30] VITALS: BP 137/98
[2022-06-07] MEDS: BENZONATATE 100MG CAPSULE PO PRN ×2 (01:53→09:27)
[2022-06-07] MEDS: IPRATROPIUM 0.5MG/ALBUTEROL 2.5MG INH SOL UD 3ML (DUONEB) NEB SCH ×4 (01:58→18:10)
[2022-06-07] MEDS: methylPREDNISolone 125MG 2ML VIAL IV SCH ×4 (03:25→20:55)
[2022-06-07 06:00] VITALS: BP 138/98
[2022-06-07] MEDS: HEPARIN SOD (PORCINE) 5000UNITS/ML 1ML VIAL/SYRINGE SC SCH ×3 (06:00→20:56)
[2022-06-07 06:48] LABS: BASO % 0.1 % (0.0-1.0); HEMOGLOBIN 13.9 g/dl (13.5-17.5); LYMPH # 0.6 10^3/uL (1.5-5.0); LYMPH % 2.9 % (24.0-44.0); MEAN CORPUSCULAR HEMOGLOBIN 30.3 pg (27.0-33.0); MEAN CORPUSCULAR HGB CONC 33.1 g/dl (32.0-36.5); MEAN CORPUSCULAR VOLUME 91.7 fl (80.0-96.0); MONO # 0.4 10^3/uL (0.0-0.8); NEUTROPHILS # 20.6 10^3/uL (1.5-8.5); NEUTROPHILS % 94.3 % (36.0-66.0); RED BLOOD COUNT 4.58 10^6/uL (4.30-6.10); WHITE BLOOD COUNT 21.8 10^3/uL (4.0-10.0)
[2022-06-07] MEDS: ADVAIR HFA 230/21MCG INHALER INH SCH ×2 (07:26→18:08)
[2022-06-07 07:29] LABS: BLOOD UREA NITROGEN 16 MG/DL (9-23); CALCIUM LEVEL 9.2 MG/DL (8.5-10.1); CARBON DIOXIDE LEVEL 28 MMOL/L (20-31); CHLORIDE LEVEL 100 MMOL/L (98-107); CREATININE FOR GFR 0.56 MG/DL (0.70-1.30); GLOMERULAR FILTRATION RATE > 60.0 (>56); GLUCOSE, FASTING 117 MG/DL (60-100); MAGNESIUM LEVEL 2.1 MG/DL (1.8-2.4); POTASSIUM SERUM 4.2 MMOL/L (3.5-5.1); SODIUM LEVEL 138 MMOL/L (136-145)
[2022-06-07] MEDS: guaiFENesin ER 600 MG TAB PO SCH ×2 (09:26→20:55)
[2022-06-07] MEDS: PANTOPRAZOLE 40MG TAB (PROTONIX) PO SCH (09:27)
[2022-06-07 14:00] VITALS: BP 157/98
[2022-06-07] MEDS: LevoFLOXacin 750 MG TABLET PO SCH (16:36)
[2022-06-07 22:00] VITALS: BP 159/107
[2022-06-07 23:40] VITALS: BP 132/84
[2022-06-08] VITALS (7 sets, daily range): BP systolic 131–160; BP diastolic 83–92; O2SAT 94–97
[2022-06-08] MEDS: IPRATROPIUM 0.5MG/ALBUTEROL 2.5MG INH SOL UD 3ML (DUONEB) NEB SCH ×3 (01:44→13:19)
[2022-06-08] MEDS: methylPREDNISolone 125MG 2ML VIAL IV SCH ×3 (03:58→18:08)
[2022-06-08] MEDS: HEPARIN SOD (PORCINE) 5000UNITS/ML 1ML VIAL/SYRINGE SC SCH ×3 (05:19→22:10)
[2022-06-08 06:27] LABS: BASO % 0.2 % (0.0-1.0); HEMATOCRIT 42.1 % (42.0-52.0); HEMOGLOBIN 13.9 g/dl (13.5-17.5); LYMPH # 0.7 10^3/uL (1.5-5.0); LYMPH % 3.8 % (24.0-44.0); MEAN CORPUSCULAR HEMOGLOBIN 30.4 pg (27.0-33.0); MEAN CORPUSCULAR VOLUME 92.1 fl (80.0-96.0); MONO # 0.5 10^3/uL (0.0-0.8); MONO % 2.7 % (2.0-8.0); NEUTROPHILS % 92.5 % (36.0-66.0); PLATELET COUNT, AUTOMATED 144 10^3/uL (150-450); RED BLOOD COUNT 4.57 10^6/uL (4.30-6.10); WHITE BLOOD COUNT 18.3 10^3/uL (4.0-10.0)
[2022-06-08 07:05] LABS: BLOOD UREA NITROGEN 18 MG/DL (9-23); CALCIUM LEVEL 8.6 MG/DL (8.5-10.1); CARBON DIOXIDE LEVEL 28 MMOL/L (20-31); CHLORIDE LEVEL 101 MMOL/L (98-107); GLOMERULAR FILTRATION RATE > 60.0 (>56); GLUCOSE, FASTING 109 MG/DL (60-100); POTASSIUM SERUM 4.2 MMOL/L (3.5-5.1); SODIUM LEVEL 138 MMOL/L (136-145)
[2022-06-08] MEDS: ADVAIR HFA 230/21MCG INHALER INH SCH ×2 (08:13→19:38)
[2022-06-08] MEDS: guaiFENesin ER 600 MG TAB PO SCH ×2 (08:45→20:42)
[2022-06-08] MEDS: PANTOPRAZOLE 40MG TAB (PROTONIX) PO SCH (08:46)
[2022-06-08] MEDS ORDERED: ISOVUE-370 76% 100ML VIAL As Ordered ONE (16:48)
[2022-06-08] MEDS: LevoFLOXacin 750 MG TABLET PO SCH (18:09)
[2022-06-08 21:06] LABS: AMPHETAMINES LEVEL URINE NEGATIVE (NEGATIVE); BARBITURATES URINE NEGATIVE (NEGATIVE); BENZODIAZEPINES URINE NEGATIVE (NEGATIVE); CANNABINOIDS URINE NEGATIVE (NEGATIVE); COCAINE METABOLITE URINE NEGATIVE (NEGATIVE); METHADONE URINE NEGATIVE (NEGATIVE); OPIATES URINE NEGATIVE (NEGATIVE); PHENCYCLIDINE URINE NEGATIVE (NEGATIVE)
[2022-06-09] VITALS (20 sets, daily range): BP systolic 114–156; BP diastolic 60–99; O2SAT 94–99
[2022-06-09] MEDS: IPRATROPIUM 0.5MG/ALBUTEROL 2.5MG INH SOL UD 3ML (DUONEB) NEB SCH ×3 (01:11→15:00)
[2022-06-09] MEDS: methylPREDNISolone 125MG 2ML VIAL IV SCH ×2 (02:47→10:49)
[2022-06-09 04:31] LABS: BASO % 0.2 % (0.0-1.0); HEMATOCRIT 41.1 % (42.0-52.0); HEMOGLOBIN 13.8 g/dl (13.5-17.5); LYMPH # 0.7 10^3/uL (1.5-5.0); LYMPH % 4.6 % (24.0-44.0); MEAN CORPUSCULAR HEMOGLOBIN 30.3 pg (27.0-33.0); MEAN CORPUSCULAR HGB CONC 33.6 g/dl (32.0-36.5); MEAN CORPUSCULAR VOLUME 90.3 fl (80.0-96.0); MONO # 0.6 10^3/uL (0.0-0.8); MONO % 4.4 % (2.0-8.0); NEUTROPHILS # 13.2 10^3/uL (1.5-8.5); NEUTROPHILS % 89.6 % (36.0-66.0); RED BLOOD COUNT 4.55 10^6/uL (4.30-6.10); WHITE BLOOD COUNT 14.7 10^3/uL (4.0-10.0)
[2022-06-09 04:45] LABS: BLOOD UREA NITROGEN 23 MG/DL (9-23); CALCIUM LEVEL 8.2 MG/DL (8.5-10.1); CARBON DIOXIDE LEVEL 27 MMOL/L (20-31); CHLORIDE LEVEL 100 MMOL/L (98-107); CREATININE FOR GFR 0.51 MG/DL (0.70-1.30); GLOMERULAR FILTRATION RATE > 60.0 (>56); GLUCOSE, FASTING 115 MG/DL (60-100); SODIUM LEVEL 136 MMOL/L (136-145)
[2022-06-09] MEDS: HEPARIN SOD (PORCINE) 5000UNITS/ML 1ML VIAL/SYRINGE SC SCH ×2 (05:52→13:21)
[2022-06-09] MEDS: ADVAIR HFA 230/21MCG INHALER INH SCH (07:18)
[2022-06-09] MEDS: guaiFENesin ER 600 MG TAB PO SCH (08:23)
[2022-06-09] MEDS: PANTOPRAZOLE 40MG TAB (PROTONIX) PO SCH (08:23)
[2022-06-09] MEDS ORDERED: predniSONE 20 MG TAB PO SCH (09:00)
[2022-06-09] MEDS ORDERED: VENTAER INH (13:53)
[2022-06-09] MEDS ORDERED: PRED20TA PO (13:53)
[2022-06-09] MEDS ORDERED: LEVO1TAB40 PO (13:53)
[2022-06-09] MEDS ORDERED: PANT40TA29 PO (13:53)
[2022-06-09] MEDS ORDERED: AMLO1TAB25 PO (13:53)
[2022-06-09] MEDS ORDERED: AIRD1INH3 INH (13:53)
[2022-06-09] MEDS ORDERED: ALB2.5NEB NEB (16:00)
== END 2022-06-09 17:23 | disposition home or self-care (01) | DRG 141 ==
LOC: M ED 22:11 → M ED INP 06-05 02:53 → M MSPAV 06-05 03:48 → M PCU 06-08 15:42
PROVIDERS: ADMIT Internal Medicine; ATTEND Internal Medicine
DX: J45.901 Unspecified asthma with (acute) exacerbation (principal); J18.9 Pneumonia, unspecified organism; D72.10 Eosinophilia, unspecified; R91.8 Other nonspecific abnormal finding of lung field; J44.0 Chronic obstructive pulmonary disease with (acute) lower respiratory infection; F15.10 Other stimulant abuse, uncomplicated; J20.9 Acute bronchitis, unspecified; J44.1 Chronic obstructive pulmonary disease with (acute) exacerbation; I10 Essential (primary) hypertension; Z77.22 Contact with and (suspected) exposure to environmental tobacco smoke (acute) (chronic); Z79.899 Other long term (current) drug therapy

== ENCOUNTER 2022-08-24 09:33 | Emergency (ER) | payer OTHER ==
[~2022-08-24] VITALS: Ht 170.2 cm; Wt 71.2 kg
[~2022-08-24 09:33] MED LIST changes: +PANT40TA29 PO
[2022-08-24 10:14] LABS: BASO # 0.1 10^3/uL (0.0-0.2); BASO % 0.8 % (0.0-1.0); EOS # 0.8 10^3/uL (0.0-0.5); EOS % 10.8 % (0.0-3.0); HEMATOCRIT 45.1 % (42.0-52.0); LYMPH # 1.4 10^3/uL (1.5-5.0); LYMPH % 17.4 % (24.0-44.0); MEAN CORPUSCULAR HEMOGLOBIN 30.1 pg (27.0-33.0); MEAN CORPUSCULAR HGB CONC 33.3 g/dl (32.0-36.5); MEAN CORPUSCULAR VOLUME 90.6 fl (80.0-96.0); MONO # 0.7 10^3/uL (0.0-0.8); MONO % 8.8 % (2.0-8.0); NEUTROPHILS # 4.8 10^3/uL (1.5-8.5); NEUTROPHILS % 61.9 % (36.0-66.0); RED BLOOD COUNT 4.98 10^6/uL (4.30-6.10); WHITE BLOOD COUNT 7.8 10^3/uL (4.0-10.0)
[2022-08-24] MEDS: COMBIVENT RESPIMAT 100-20MCG INHALER 4GM INH SCH ×3 (10:17→10:49)
[2022-08-24 10:42] LABS: BLOOD UREA NITROGEN 7 MG/DL (9-23); CALCIUM LEVEL 9.1 MG/DL (8.5-10.1); CARBON DIOXIDE LEVEL 28 MMOL/L (20-31); CHLORIDE LEVEL 103 MMOL/L (98-107); GLOMERULAR FILTRATION RATE > 60.0 (>56); GLUCOSE, FASTING 79 MG/DL (60-100); POTASSIUM SERUM 4.2 MMOL/L (3.5-5.1); SODIUM LEVEL 138 MMOL/L (136-145)
[2022-08-24] MEDS ORDERED: DOXY-443 PO (11:55)
[2022-08-24] MEDS ORDERED: IPRA0.00 INH (11:55)
[2022-08-24] MEDS ORDERED: VENTAER INH (11:55)
[2022-08-24] MEDS ORDERED: PRED10TA2 PO (11:55)
[2022-08-24 12:30] VITALS: BP 157/116
== END 2022-08-24 12:43 | disposition home or self-care (01) ==
LOC: M ED 09:33
DX: J44.1 Chronic obstructive pulmonary disease with (acute) exacerbation (principal)
CPT/HCPCS: 36600; 71045; 80048; 83605; 85025; 87040; 87486; 87581; 87633; 87798; 93005; 93041; 94640; 94760; 96374; 99285; J1100

== ENCOUNTER 2022-09-15 04:54 | Emergency (ER) | payer OTHER ==
[~2022-09-15] VITALS: Ht 167.6 cm; Wt 71.0 kg
[~2022-09-15 04:54] MED LIST changes: +DOXY-443 PO; -DULE100A INH; +IPRA0.00 INH; +MOME13HF8 INH; +MONT-5 PO; -SING10TA32 PO
[2022-09-15] MEDS ORDERED: methylPREDNISolone 125MG 2ML VIAL IV ONE (05:55)
[2022-09-15 06:01] LABS: BASO # 0.1 10^3/uL (0.0-0.2); BASO % 0.7 % (0.0-1.0); EOS % 9.9 % (0.0-3.0); HEMATOCRIT 46.5 % (42.0-52.0); HEMOGLOBIN 15.8 g/dl (13.5-17.5); LYMPH # 1.7 10^3/uL (1.5-5.0); LYMPH % 16.2 % (24.0-44.0); MEAN CORPUSCULAR HEMOGLOBIN 30.4 pg (27.0-33.0); MEAN CORPUSCULAR VOLUME 89.4 fl (80.0-96.0); MONO # 0.7 10^3/uL (0.0-0.8); MONO % 6.6 % (2.0-8.0); NEUTROPHILS # 6.8 10^3/uL (1.5-8.5); NEUTROPHILS % 66.3 % (36.0-66.0); PLATELET COUNT, AUTOMATED 184 10^3/uL (150-450); WHITE BLOOD COUNT 10.3 10^3/uL (4.0-10.0)
[2022-09-15] MEDS: IPRATROPIUM 0.5MG/ALBUTEROL 2.5MG INH SOL UD 3ML (DUONEB) NEB SCH ×2 (06:04→06:28)
[2022-09-15 06:13] LABS: RSV AMPLIFICATION NEGATIVE (NEGATIVE)
[2022-09-15 06:26] LABS: CK-MB VALUE MASS 1.5 NG/ML (<3.6)
[2022-09-15 06:28] LABS: ALBUMIN 3.9 G/DL (3.2-5.2); ALKALINE PHOSPHATASE 95 U/L (46-116); ALT/SGPT 20 U/L (7.0-40); AST/SGOT 23 U/L (<34); BILIRUBIN,DIRECT 0.2 MG/DL (<0.4); BILIRUBIN,TOTAL 0.7 MG/DL (0.3-1.2); BLOOD UREA NITROGEN 10 MG/DL (9-23); CARBON DIOXIDE LEVEL 30 MMOL/L (20-31); CHLORIDE LEVEL 101 MMOL/L (98-107); CREATININE FOR GFR 0.59 MG/DL (0.70-1.30); GLOMERULAR FILTRATION RATE > 60.0 (>56); GLUCOSE, FASTING 94 MG/DL (60-100); POTASSIUM SERUM 4.5 MMOL/L (3.5-5.1); SODIUM LEVEL 138 MMOL/L (136-145); TOTAL PROTEIN 7.3 G/DL (5.7-8.2)
[2022-09-15 06:36] LABS: CPK CREATINE PHOSPHOKINASE 66 U/L (46-171); MB/CK RELATIVE INDEX 2.27 (< OR =4)
[2022-09-15 07:42] VITALS: BP 141/81
[2022-09-15] MEDS ORDERED: PRED10TA2 PO (07:47)
[2022-09-15] MEDS ORDERED: PROT1TAB2 PO (07:47)
[2022-09-15] MEDS ORDERED: AMLO1TAB24 PO (07:47)
[2022-09-15 08:18] VITALS: BP 154/93
[2022-09-15] MEDS ORDERED: VENTAER INH (08:29)
[2022-09-15] MEDS ORDERED: IPRA0.00 INH (08:29)
[2022-09-15] MEDS ORDERED: NEBU1EAC78 MC (08:29)
== END 2022-09-15 08:45 | disposition home or self-care (01) ==
LOC: M ED 04:54
DX: J44.1 Chronic obstructive pulmonary disease with (acute) exacerbation (principal); I10 Essential (primary) hypertension; Z91.199 Patient's noncompliance with other medical treatment and regimen due to unspecified reason; K21.9 Gastro-esophageal reflux disease without esophagitis; R94.31 Abnormal electrocardiogram [ECG] [EKG]; Z79.51 Long term (current) use of inhaled steroids; Z79.899 Other long term (current) drug therapy
CPT/HCPCS: 71045; 80048; 80076; 82550; 82553; 83880; 85025; 87040; 87631; 93005; 93041; 94640; 94760; 96374; 99285; J2930

== ENCOUNTER 2022-10-03 11:19 | Emergency (ER) | payer OTHER ==
[~2022-10-03] VITALS: Ht 170.2 cm; Wt 68.9 kg
[~2022-10-03 11:19] MED LIST changes: +NEBU1EAC78 MC; +PROT1TAB2 PO
[2022-10-03 13:06] LABS: BASO # 0.1 10^3/uL (0.0-0.2); BASO % 0.6 % (0.0-1.0); EOS # 1.2 10^3/uL (0.0-0.5); EOS % 10.1 % (0.0-3.0); HEMATOCRIT 47.3 % (42.0-52.0); HEMOGLOBIN 16.3 g/dl (13.5-17.5); LYMPH # 1.8 10^3/uL (1.5-5.0); LYMPH % 15.7 % (24.0-44.0); MEAN CORPUSCULAR HEMOGLOBIN 30.8 pg (27.0-33.0); MEAN CORPUSCULAR HGB CONC 34.5 g/dl (32.0-36.5); MEAN CORPUSCULAR VOLUME 89.2 fl (80.0-96.0); MONO # 0.8 10^3/uL (0.0-0.8); MONO % 7.1 % (2.0-8.0); NEUTROPHILS # 7.8 10^3/uL (1.5-8.5); NEUTROPHILS % 66.3 % (36.0-66.0); PLATELET COUNT, AUTOMATED 169 10^3/uL (150-450); WHITE BLOOD COUNT 11.7 10^3/uL (4.0-10.0)
[2022-10-03 13:32] LABS: CK-MB VALUE MASS < 1.0 NG/ML (<3.6)
[2022-10-03 13:34] LABS: ALBUMIN 3.7 G/DL (3.2-5.2); ALKALINE PHOSPHATASE 89 U/L (46-116); ALT/SGPT 17 U/L (7.0-40); AST/SGOT 19 U/L (<34); BILIRUBIN,DIRECT 0.1 MG/DL (<0.4); BILIRUBIN,TOTAL 0.5 MG/DL (0.3-1.2); BLOOD UREA NITROGEN 13 MG/DL (9-23); CALCIUM LEVEL 9.3 MG/DL (8.5-10.1); CARBON DIOXIDE LEVEL 31 MMOL/L (20-31); CHLORIDE LEVEL 104 MMOL/L (98-107); CREATININE FOR GFR 0.68 MG/DL (0.70-1.30); GLOMERULAR FILTRATION RATE > 60.0 (>56); GLUCOSE, FASTING 98 MG/DL (60-100); POTASSIUM SERUM 4.9 MMOL/L (3.5-5.1); SODIUM LEVEL 138 MMOL/L (136-145)
[2022-10-03 13:40] LABS: CPK CREATINE PHOSPHOKINASE 49 U/L (46-171); MB/CK RELATIVE INDEX 2.04 (< OR =4)
[2022-10-03] MEDS ORDERED: methylPREDNISolone 125MG 2ML VIAL IV ONE (14:30)
[2022-10-03] MEDS ORDERED: IPRATROPIUM 0.5MG/ALBUTEROL 2.5MG INH SOL UD 3ML (DUONEB) NEB ONE (14:30)
[2022-10-03] MEDS ORDERED: ISOVUE-370 76% 100ML VIAL As Ordered ONE (14:35)
[2022-10-03 14:57] LABS: VENOUS HCO3 25.1 MEQ/L (23.0-27.0); VENOUS O2 SATURATION 95.5 % (60.0-80.0); VENOUS PARTIAL PRESSURE CO2 51.5 mmHg (38.0-50.0); VENOUS PARTIAL PRESSURE O2 86.2 mmHg (30.0-50.0); VENOUS PH 7.306 UNITS (7.330-7.430); VENOUS STANDARD HCO3 22.7 MEQ/L; VENOUS TOTAL CO2 26.7 MEQ/L (24.0-28.0)
[2022-10-03] MEDS: IPRATROPIUM 0.5MG/ALBUTEROL 2.5MG INH SOL UD 3ML (DUONEB) NEB PRN ×3 (15:03→16:17)
[2022-10-03 15:26] LABS: CK-MB VALUE MASS < 1.0 NG/ML (<3.6)
[2022-10-03 15:30] LABS: THYROID STIMULATING HORMONE 0.488 uIU/ML (0.55-4.78)
[2022-10-03 15:31] LABS: CPK CREATINE PHOSPHOKINASE 43 U/L (46-171); MB/CK RELATIVE INDEX 2.32 (< OR =4)
[2022-10-03 16:41] LABS: CK-MB VALUE MASS < 1.0 NG/ML (<3.6)
[2022-10-03 16:44] LABS: CPK CREATINE PHOSPHOKINASE 41 U/L (46-171); MB/CK RELATIVE INDEX 2.43 (< OR =4)
[2022-10-03 19:01] VITALS: BP 144/72
[2022-10-03] MEDS ORDERED: ALBU6.7H6 INH (19:19)
[2022-10-03] MEDS ORDERED: PRED20TA PO (19:19)
== END 2022-10-03 20:10 | disposition home or self-care (01) ==
LOC: M ED 11:19
DX: J44.9 Chronic obstructive pulmonary disease, unspecified (principal); Z79.51 Long term (current) use of inhaled steroids; Z79.899 Other long term (current) drug therapy
CPT/HCPCS: 71045; 71275; 80048; 80076; 82550; 82553; 82803; 83880; 84443; 85025; 87486; 87581; 87633; 87798; 93005; 93041; 94640; 94760; 96374; 99285; J2930; Q9967

== ENCOUNTER 2022-10-29 14:15 | Observation (INO) | payer OTHER ==
[~2022-10-29] VITALS: Ht 170.2 cm; Wt 67.0 kg
[~2022-10-29 14:15] MED LIST changes: +FLUT50SP17 NARES; -FLUTISP NARES
[2022-10-29 14:57] LABS: VENOUS HCO3 28.8 MEQ/L (23.0-27.0); VENOUS PARTIAL PRESSURE CO2 48.8 mmHg (38.0-50.0); VENOUS PARTIAL PRESSURE O2 65.1 mmHg (30.0-50.0); VENOUS PH 7.389 UNITS (7.330-7.430); VENOUS TOTAL CO2 30.3 MEQ/L (24.0-28.0)
[2022-10-29] MEDS: COMBIVENT RESPIMAT 100-20MCG INHALER 4GM INH SCH ×4 (15:00→21:32)
[2022-10-29 15:05] LABS: BASO # 0.1 10^3/uL (0.0-0.2); BASO % 1.2 % (0.0-1.0); EOS # 0.9 10^3/uL (0.0-0.5); EOS % 11.8 % (0.0-3.0); HEMATOCRIT 38.5 % (42.0-52.0); HEMOGLOBIN 13.1 g/dl (13.5-17.5); LYMPH # 1.6 10^3/uL (1.5-5.0); LYMPH % 20.6 % (24.0-44.0); MEAN CORPUSCULAR HEMOGLOBIN 30.7 pg (27.0-33.0); MEAN CORPUSCULAR VOLUME 90.2 fl (80.0-96.0); MONO # 0.8 10^3/uL (0.0-0.8); MONO % 10.6 % (2.0-8.0); NEUTROPHILS # 4.2 10^3/uL (1.5-8.5); NEUTROPHILS % 55.4 % (36.0-66.0); PLATELET COUNT, AUTOMATED 150 10^3/uL (150-450); RED BLOOD COUNT 4.27 10^6/uL (4.30-6.10); WHITE BLOOD COUNT 7.5 10^3/uL (4.0-10.0)
[2022-10-29 15:24] LABS: INR 0.94; PROTHROMBIN TIME 12.8 SECONDS (12.5-14.5)
[2022-10-29 15:32] LABS: ALBUMIN 3.4 G/DL (3.2-5.2); ALKALINE PHOSPHATASE 91 U/L (46-116); ALT/SGPT 17 U/L (7.0-40); AST/SGOT 16 U/L (<34); BILIRUBIN,DIRECT 0.1 MG/DL (<0.4); BILIRUBIN,TOTAL 0.3 MG/DL (0.3-1.2); BLOOD UREA NITROGEN 9 MG/DL (9-23); CALCIUM LEVEL 8.5 MG/DL (8.5-10.1); CARBON DIOXIDE LEVEL 29 MMOL/L (20-31); CHLORIDE LEVEL 102 MMOL/L (98-107); CK-MB VALUE MASS 1.5 NG/ML (<3.6); CPK CREATINE PHOSPHOKINASE 92 U/L (46-171); GLOMERULAR FILTRATION RATE > 60.0 (>56); GLUCOSE, FASTING 97 MG/DL (60-100); MB/CK RELATIVE INDEX 1.63 (< OR =4); POTASSIUM SERUM 3.7 MMOL/L (3.5-5.1); SODIUM LEVEL 140 MMOL/L (136-145); TOTAL PROTEIN 6.8 G/DL (5.7-8.2)
[2022-10-29 15:33] LABS: THYROID STIMULATING HORMONE 2.053 uIU/ML (0.55-4.78); THYROXINE (T4) 8.5 UG/DL (4.5-10.9)
[2022-10-29] MEDS ORDERED: IPRATROPIUM 0.5MG/ALBUTEROL 2.5MG INH SOL UD 3ML (DUONEB) NEB PRN (18:10)
[2022-10-29 18:12] VITALS: O2SAT 93
[2022-10-29] MEDS ORDERED: THERTAB52 PO (18:46)
[2022-10-29] MEDS ORDERED: ACET-897 PO (18:46)
[2022-10-29] MEDS ORDERED: HOME MED LIST COMPLETE! XX SCH (18:50)
[2022-10-29] MEDS ORDERED: AZITHROMYCIN INJ 500 MG, VIAL MATE ADAPTER 1 EACH in NS 250 ML IV SCH (20:00)
[2022-10-29 21:20] VITALS: BP 136/98
[2022-10-29] MEDS: ADVAIR HFA 115/21MCG INHALER INH SCH (21:31)
[2022-10-29] MEDS: methylPREDNISolone 125MG 2ML VIAL IV SCH (23:13)
[2022-10-30] MEDS: COMBIVENT RESPIMAT 100-20MCG INHALER 4GM INH SCH ×2 (01:15→07:47)
[2022-10-30] MEDS ORDERED: guaiFENesin DM LIQ 10ML UD PO PRN (01:45)
[2022-10-30 05:10] VITALS: BP 116/78
[2022-10-30] MEDS: methylPREDNISolone 125MG 2ML VIAL IV SCH (06:12)
[2022-10-30 06:48] LABS: HEMATOCRIT 39.7 % (42.0-52.0); HEMOGLOBIN 13.2 g/dl (13.5-17.5); MEAN CORPUSCULAR HEMOGLOBIN 30.2 pg (27.0-33.0); MEAN CORPUSCULAR HGB CONC 33.2 g/dl (32.0-36.5); MEAN CORPUSCULAR VOLUME 90.8 fl (80.0-96.0); RED BLOOD COUNT 4.37 10^6/uL (4.30-6.10)
[2022-10-30 07:23] LABS: BLOOD UREA NITROGEN 12 MG/DL (9-23); CALCIUM LEVEL 8.9 MG/DL (8.5-10.1); CARBON DIOXIDE LEVEL 26 MMOL/L (20-31); CHLORIDE LEVEL 103 MMOL/L (98-107); CREATININE FOR GFR 0.52 MG/DL (0.70-1.30); GLOMERULAR FILTRATION RATE > 60.0 (>56); GLUCOSE, FASTING 102 MG/DL (60-100); POTASSIUM SERUM 4.5 MMOL/L (3.5-5.1); SODIUM LEVEL 137 MMOL/L (136-145)
[2022-10-30 07:25] LABS: PLATELET COUNT, AUTOMATED 101 10^3/uL (150-450)
[2022-10-30] MEDS: ADVAIR HFA 115/21MCG INHALER INH SCH (07:47)
[2022-10-30] MEDS ORDERED: TREL1AER PO (08:33)
[2022-10-30] MEDS ORDERED: PRED20TA PO (08:33)
[2022-10-30] MEDS ORDERED: AZIT500T5 PO (08:33)
[2022-10-30] MEDS ORDERED: GUAISYP5 PO (08:36)
[2022-10-30 08:50] VITALS: BP 129/73
[2022-10-30] MEDS ORDERED: ENOXAPARIN 40MG/0.4ML SYRINGE (J1650 PER 10MG) SC SCH (09:00)
[2022-10-30] MEDS ORDERED: PANTOPRAZOLE 40MG TAB (PROTONIX) PO SCH (09:00)
[2022-10-30] MEDS ORDERED: amLODIPine 5 MG TAB PO SCH (09:00)
== END 2022-10-30 11:27 | disposition home or self-care (01) ==
LOC: M ED 14:15 → M ED INP 18:05 → ENRESERV 20:20 → M MSPAV 21:05
PROVIDERS: ADMIT Internal Medicine; ATTEND Internal Medicine
DX: J44.1 Chronic obstructive pulmonary disease with (acute) exacerbation (principal); Z91.148 Patient's other noncompliance with medication regimen for other reason; B44.9 Aspergillosis, unspecified; I10 Essential (primary) hypertension; K21.9 Gastro-esophageal reflux disease without esophagitis; Z79.51 Long term (current) use of inhaled steroids; Z87.891 Personal history of nicotine dependence
CPT/HCPCS: 36415; 71045; 80048; 80076; 82550; 82553; 82803; 83605; 84145; 84436; 84443; 85025; 85027; 85610; 87040; 87486; 87581; 87633; 87641; 87798; 93005; 93041; 94640; 94664; 94760; 96372; 96374; 96375; 96376; 99285; J0456; J1100; J1650; J2930

== ENCOUNTER 2023-02-10 14:32 | Inpatient (IN) | payer OTHER ==
[~2023-02-10] VITALS: Ht 170.2 cm; Wt 69.5 kg
[~2023-02-10 14:32] MED LIST changes: +ACET-897 PO; +THERTAB52 PO; +TREL1AER PO
[2023-02-10 16:12] LABS: VENOUS BASE EXCESS -2.1 (-2.0-2.0); VENOUS HCO3 25.5 MMOL/L (23.0-27.0); VENOUS O2 SATURATION 82.2 % (60.0-80.0); VENOUS PARTIAL PRESSURE CO2 54.6 mmHg (38.0-50.0); VENOUS PARTIAL PRESSURE O2 52.7 mmHg (30.0-50.0); VENOUS PH 7.287 UNITS (7.330-7.430); VENOUS STANDARD HCO3 22.3 MMOL/L; VENOUS TOTAL CO2 27.2 MMOL/L (24.0-28.0)
[2023-02-10 16:17] LABS: BASO # 0.1 10^3/uL (0.0-0.2); BASO % 0.9 % (0.0-1.0); EOS # 1.4 10^3/uL (0.0-0.5); EOS % 14.6 % (0.0-3.0); HEMATOCRIT 41.3 % (42.0-52.0); HEMOGLOBIN 14.2 g/dl (13.5-17.5); LYMPH # 1.8 10^3/uL (1.5-5.0); MEAN CORPUSCULAR HGB CONC 34.4 g/dl (32.0-36.5); MEAN CORPUSCULAR VOLUME 90.2 fl (80.0-96.0); MONO # 0.6 10^3/uL (0.0-0.8); MONO % 6.6 % (2.0-8.0); NEUTROPHILS # 5.7 10^3/uL (1.5-8.5); NEUTROPHILS % 58.7 % (36.0-66.0); RED BLOOD COUNT 4.58 10^6/uL (4.30-6.10); WHITE BLOOD COUNT 9.7 10^3/uL (4.0-10.0)
[2023-02-10 16:45] LABS: ALBUMIN 3.7 G/DL (3.2-5.2); ALKALINE PHOSPHATASE 79 U/L (46-116); ALT/SGPT 17 U/L (7.0-40); AST/SGOT 11 U/L (<34); BILIRUBIN,DIRECT 0.1 MG/DL (<0.4); BILIRUBIN,TOTAL 0.4 MG/DL (0.3-1.2); BLOOD UREA NITROGEN 8 MG/DL (9-23); CALCIUM LEVEL 8.9 MG/DL (8.5-10.1); CARBON DIOXIDE LEVEL 30 MMOL/L (20-31); CHLORIDE LEVEL 102 MMOL/L (98-107); CPK CREATINE PHOSPHOKINASE 150 U/L (46-171); CREATININE FOR GFR 0.78 MG/DL (0.70-1.30); GLOMERULAR FILTRATION RATE > 60.0 (>56); GLUCOSE, FASTING 89 MG/DL (60-100); MB/CK RELATIVE INDEX 1.33 (< OR =4); SODIUM LEVEL 140 MMOL/L (136-145); TOTAL PROTEIN 7.2 G/DL (5.7-8.2)
[2023-02-10 16:47] LABS: THYROID STIMULATING HORMONE 1.081 uIU/ML (0.55-4.78); THYROXINE (T4) 7.8 UG/DL (4.5-10.9)
[2023-02-10] MEDS ORDERED: IPRATROPIUM 0.5MG/ALBUTEROL 2.5MG INH SOL UD 3ML (DUONEB) NEB ONE ×2 (18:45→20:10)
[2023-02-10 19:58] LABS: RSV AMPLIFICATION NEGATIVE (NEGATIVE)
[2023-02-10] MEDS ORDERED: dexAMETHasone 20MG/5ML VIAL IV ONE (20:10)
[2023-02-10] MEDS ORDERED: ALBUTEROL SULFATE 2.5MG/0.5ML INH NEB SOLN NEB ONE (21:55)
[2023-02-10] MEDS ORDERED: ALBUTEROL 90 MCG/ACT 8GM HFA INHALER INH PRN (23:35)
[2023-02-10] MEDS ORDERED: HOME MED LIST COMPLETE! XX SCH (23:55)
[2023-02-10] MEDS ORDERED: AZEL1SPR3 NARES (23:56)
[2023-02-10] MEDS ORDERED: MONT10TA97 PO (23:56)
[2023-02-10] MEDS ORDERED: AMLO1TAB24 PO (23:56)
[2023-02-11] MEDS: IPRATROPIUM 0.5MG/ALBUTEROL 2.5MG INH SOL UD 3ML (DUONEB) NEB SCH ×4 (02:00→20:48)
[2023-02-11] MEDS: AZITHROMYCIN 250MG TABLET PO SCH (04:08)
[2023-02-11] MEDS: methylPREDNISolone 40MG 1ML VIAL IV SCH ×3 (05:46→20:46)
[2023-02-11] MEDS: amLODIPine 5 MG TAB PO SCH (09:05)
[2023-02-11] MEDS: ENOXAPARIN 40MG/0.4ML SYRINGE (J1650 PER 10MG) SC SCH (09:06)
[2023-02-11 10:00] LABS: HEMATOCRIT 43.1 % (42.0-52.0); HEMOGLOBIN 14.5 g/dl (13.5-17.5); MEAN CORPUSCULAR HEMOGLOBIN 30.7 pg (27.0-33.0); MEAN CORPUSCULAR HGB CONC 33.6 g/dl (32.0-36.5); MEAN CORPUSCULAR VOLUME 91.1 fl (80.0-96.0); PLATELET COUNT, AUTOMATED 150 10^3/uL (150-450); RED BLOOD COUNT 4.73 10^6/uL (4.30-6.10)
[2023-02-11 10:34] LABS: BLOOD UREA NITROGEN 9 MG/DL (9-23); CALCIUM LEVEL 9.1 MG/DL (8.5-10.1); CARBON DIOXIDE LEVEL 25 MMOL/L (20-31); CHLORIDE LEVEL 104 MMOL/L (98-107); CREATININE FOR GFR 0.54 MG/DL (0.70-1.30); GLOMERULAR FILTRATION RATE > 60.0 (>56); GLUCOSE, FASTING 165 MG/DL (60-100); MAGNESIUM LEVEL 1.9 MG/DL (1.8-2.4); POTASSIUM SERUM 4.1 MMOL/L (3.5-5.1); SODIUM LEVEL 139 MMOL/L (136-145)
[2023-02-11 10:40] LABS: PROCALCITONIN <0.04 ng/ml
[2023-02-11 12:30] VITALS: BP 147/98; TEMP 98.3; O2SAT 93
[2023-02-11 14:00] VITALS: BP 145/97; TEMP 97.9; O2SAT 93
[2023-02-11] MEDS: TIOTROPIUM INHALER/CAPSULE (SPIRIVA) INH SCH (15:38)
[2023-02-11 20:00] VITALS: BP 152/100; TEMP 98.2; O2SAT 94
[2023-02-11] MEDS: MONTELUKAST 10 MG TAB PO SCH (20:46)
[2023-02-11] MEDS: ADVAIR HFA 115/21MCG INHALER INH SCH (20:48)
[2023-02-11] MEDS: AZELASTINE 137MCG NASAL SPY 30 ML (ASTELIN) SCH (20:58)
[2023-02-11] MEDS ORDERED: ACETAMINOPHEN TAB 650MG DOSE (2X325MG) PO PRN (23:05)
[2023-02-12 00:27] VITALS: BP 132/94
[2023-02-12] MEDS: IPRATROPIUM 0.5MG/ALBUTEROL 2.5MG INH SOL UD 3ML (DUONEB) NEB SCH ×4 (00:34→19:22)
[2023-02-12] MEDS: methylPREDNISolone 40MG 1ML VIAL IV SCH ×3 (05:36→20:45)
[2023-02-12 06:00] VITALS: BP 128/90; TEMP 98.2; O2SAT 92
[2023-02-12] MEDS: ADVAIR HFA 115/21MCG INHALER INH SCH ×2 (07:00→19:23)
[2023-02-12] MEDS: TIOTROPIUM INHALER/CAPSULE (SPIRIVA) INH SCH (07:00)
[2023-02-12 07:59] LABS: BASO % 0.1 % (0.0-1.0); HEMATOCRIT 43.8 % (42.0-52.0); HEMOGLOBIN 15.1 g/dl (13.5-17.5); LYMPH # 1.1 10^3/uL (1.5-5.0); LYMPH % 4.6 % (24.0-44.0); MEAN CORPUSCULAR HEMOGLOBIN 31.1 pg (27.0-33.0); MEAN CORPUSCULAR HGB CONC 34.5 g/dl (32.0-36.5); MEAN CORPUSCULAR VOLUME 90.1 fl (80.0-96.0); MONO # 0.7 10^3/uL (0.0-0.8); MONO % 2.9 % (2.0-8.0); NEUTROPHILS # 22.4 10^3/uL (1.5-8.5); NEUTROPHILS % 91.7 % (36.0-66.0); RED BLOOD COUNT 4.86 10^6/uL (4.30-6.10); WHITE BLOOD COUNT 24.4 10^3/uL (4.0-10.0)
[2023-02-12 08:24] LABS: BLOOD UREA NITROGEN 18 MG/DL (9-23); CALCIUM LEVEL 9.2 MG/DL (8.5-10.1); CARBON DIOXIDE LEVEL 26 MMOL/L (20-31); CHLORIDE LEVEL 101 MMOL/L (98-107); CREATININE FOR GFR 0.58 MG/DL (0.70-1.30); GLOMERULAR FILTRATION RATE > 60.0 (>56); GLUCOSE, FASTING 108 MG/DL (60-100); POTASSIUM SERUM 4.4 MMOL/L (3.5-5.1); SODIUM LEVEL 138 MMOL/L (136-145)
[2023-02-12] MEDS: amLODIPine 5 MG TAB PO SCH (08:39)
[2023-02-12] MEDS: ENOXAPARIN 40MG/0.4ML SYRINGE (J1650 PER 10MG) SC SCH (08:39)
[2023-02-12] MEDS: AZITHROMYCIN 250MG TABLET PO SCH (08:39)
[2023-02-12] MEDS: AZELASTINE 137MCG NASAL SPY 30 ML (ASTELIN) SCH ×2 (08:41→20:46)
[2023-02-12] MEDS: guaiFENesin ER 600 MG TAB PO SCH ×2 (11:19→20:45)
[2023-02-12 14:00] VITALS: BP 125/90; TEMP 97.9; O2SAT 92
[2023-02-12] MEDS ORDERED: ISOVUE-370 76% 100ML VIAL As Ordered ONE (14:08)
[2023-02-12 19:59] VITALS: BP 153/103; TEMP 97.7; O2SAT 94
[2023-02-12] MEDS: MONTELUKAST 10 MG TAB PO SCH (20:45)
[2023-02-13] MEDS: IPRATROPIUM 0.5MG/ALBUTEROL 2.5MG INH SOL UD 3ML (DUONEB) NEB SCH ×2 (02:00→07:14)
[2023-02-13] MEDS: methylPREDNISolone 40MG 1ML VIAL IV SCH (05:10)
[2023-02-13 05:39] VITALS: BP 120/84; TEMP 97.7; O2SAT 95
[2023-02-13 05:39] LABS: BASO % 0.1 % (0.0-1.0); HEMATOCRIT 41.9 % (42.0-52.0); HEMOGLOBIN 14.2 g/dl (13.5-17.5); LYMPH # 0.9 10^3/uL (1.5-5.0); LYMPH % 3.8 % (24.0-44.0); MEAN CORPUSCULAR HEMOGLOBIN 30.9 pg (27.0-33.0); MEAN CORPUSCULAR HGB CONC 33.9 g/dl (32.0-36.5); MEAN CORPUSCULAR VOLUME 91.1 fl (80.0-96.0); MONO # 0.8 10^3/uL (0.0-0.8); MONO % 3.7 % (2.0-8.0); NEUTROPHILS # 20.7 10^3/uL (1.5-8.5); NEUTROPHILS % 91.3 % (36.0-66.0); PLATELET COUNT, AUTOMATED 155 10^3/uL (150-450); WHITE BLOOD COUNT 22.6 10^3/uL (4.0-10.0)
[2023-02-13 06:06] LABS: BLOOD UREA NITROGEN 20 MG/DL (9-23); CARBON DIOXIDE LEVEL 27 MMOL/L (20-31); CHLORIDE LEVEL 102 MMOL/L (98-107); GLOMERULAR FILTRATION RATE > 60.0 (>56); GLUCOSE, FASTING 107 MG/DL (60-100); POTASSIUM SERUM 4.2 MMOL/L (3.5-5.1); SODIUM LEVEL 140 MMOL/L (136-145)
[2023-02-13] MEDS: TIOTROPIUM INHALER/CAPSULE (SPIRIVA) INH SCH (07:13)
[2023-02-13] MEDS: ADVAIR HFA 115/21MCG INHALER INH SCH (07:14)
[2023-02-13 08:00] VITALS: BP 143/97; TEMP 97.5; O2SAT 95
[2023-02-13 08:55] VITALS: BP 143/97
[2023-02-13] MEDS: ENOXAPARIN 40MG/0.4ML SYRINGE (J1650 PER 10MG) SC SCH (08:55)
[2023-02-13] MEDS: amLODIPine 5 MG TAB PO SCH (08:55)
[2023-02-13] MEDS: guaiFENesin ER 600 MG TAB PO SCH (08:56)
[2023-02-13] MEDS: AZELASTINE 137MCG NASAL SPY 30 ML (ASTELIN) SCH (08:56)
[2023-02-13] MEDS: AZITHROMYCIN 250MG TABLET PO SCH (08:56)
[2023-02-13] MEDS ORDERED: PRED10TA2 PO (09:04)
[2023-02-13] MEDS ORDERED: ALBU6.7H6 INH (09:04)
[2023-02-13] MEDS ORDERED: PRED20TA PO (09:06)
== END 2023-02-13 12:37 | disposition home health service (06) | DRG 140 ==
LOC: M ED 14:32 → M ED INP 23:58 → ENRESERV 02-11 12:05 → M MSPAV 02-11 12:31
PROVIDERS: ADMIT Family Medicine; ATTEND Internal Medicine
DX: J44.1 Chronic obstructive pulmonary disease with (acute) exacerbation (principal); D72.10 Eosinophilia, unspecified; I10 Essential (primary) hypertension; Z79.899 Other long term (current) drug therapy

== ENCOUNTER 2023-08-19 01:04 | Inpatient (IN) | payer OTHER ==
[~2023-08-19] VITALS: Ht 170.2 cm; Wt 70.2 kg
[~2023-08-19 01:04] MED LIST changes: +AZEL1SPR3 NARES; +CEFD1CAP9 PO; -CEFD300C41 PO; -FLUT50SP17 NARES; +FLUTISP NARES
[2023-08-19 02:37] LABS: BASO # 0.1 10^3/uL (0.0-0.2); BASO % 0.8 % (0.0-1.0); EOS # 2.6 10^3/uL (0.0-0.5); EOS % 15.5 % (0.0-3.0); HEMATOCRIT 40.6 % (42.0-52.0); LYMPH # 2.7 10^3/uL (1.5-5.0); MEAN CORPUSCULAR HEMOGLOBIN 30.8 pg (27.0-33.0); MEAN CORPUSCULAR HGB CONC 34.5 g/dl (32.0-36.5); MEAN CORPUSCULAR VOLUME 89.4 fl (80.0-96.0); MONO % 6.2 % (2.0-8.0); NEUTROPHILS # 10.3 10^3/uL (1.5-8.5); NEUTROPHILS % 61.1 % (36.0-66.0); RED BLOOD COUNT 4.54 10^6/uL (4.30-6.10); WHITE BLOOD COUNT 16.8 10^3/uL (4.0-10.0)
[2023-08-19] MEDS: methylPREDNISolone 125MG 2ML VIAL IV ONE (02:40)
[2023-08-19] MEDS: IPRATROPIUM 0.5MG/ALBUTEROL 2.5MG INH SOL UD 3ML (DUONEB) NEB SCH ×2 (02:41→08:12)
[2023-08-19 02:59] LABS: ALBUMIN 3.7 G/DL (3.2-5.2); ALKALINE PHOSPHATASE 84 U/L (46-116); ALT/SGPT 16 U/L (7.0-40); AST/SGOT 26 U/L (<34); BILIRUBIN,DIRECT 0.2 MG/DL (<0.4); BILIRUBIN,TOTAL 0.8 MG/DL (0.3-1.2); BLOOD UREA NITROGEN 8 MG/DL (9-23); CALCIUM LEVEL 8.9 MG/DL (8.5-10.1); CARBON DIOXIDE LEVEL 29 MMOL/L (20-31); CHLORIDE LEVEL 100 MMOL/L (98-107); CK-MB VALUE MASS 1.6 NG/ML (<3.6); CREATININE FOR GFR 0.59 MG/DL (0.70-1.30); GLOMERULAR FILTRATION RATE > 60.0 (>56); GLUCOSE, FASTING 125 MG/DL (60-100); POTASSIUM SERUM 4.1 MMOL/L (3.5-5.1); SODIUM LEVEL 135 MMOL/L (136-145); TOTAL PROTEIN 8.1 G/DL (5.7-8.2)
[2023-08-19 03:00] LABS: CPK CREATINE PHOSPHOKINASE 208 U/L (46-171); MB/CK RELATIVE INDEX 0.76 (< OR =4)
[2023-08-19 03:58] LABS: VENOUS BASE EXCESS -0.3 (-2.0-2.0); VENOUS HCO3 24.4 MMOL/L (23.0-27.0); VENOUS O2 SATURATION 94.5 % (60.0-80.0); VENOUS PARTIAL PRESSURE CO2 40.3 mmHg (38.0-50.0); VENOUS PARTIAL PRESSURE O2 74.3 mmHg (30.0-50.0); VENOUS STANDARD HCO3 24.2 MMOL/L; VENOUS TOTAL CO2 25.6 MMOL/L (24.0-28.0)
[2023-08-19] MEDS: BENZONATATE 100MG CAPSULE PO ONE (04:51)
[2023-08-19] MEDS ORDERED: ALBU6.7H6 INH (05:19)
[2023-08-19] MEDS ORDERED: TREL1AER PO (05:21)
[2023-08-19] MEDS ORDERED: ALB2.5NEB INH (05:25)
[2023-08-19] MEDS ORDERED: HOME MED LIST COMPLETE! XX SCH (05:35)
[2023-08-19] MEDS: MAG SULF 1GM/100ML (MAG RUN) 1 GM in IV 1 EA IV SCH (07:00)
[2023-08-19 07:16] LABS: HEMATOCRIT 41.6 % (42.0-52.0); HEMOGLOBIN 14.4 g/dl (13.5-17.5); MEAN CORPUSCULAR HEMOGLOBIN 30.8 pg (27.0-33.0); MEAN CORPUSCULAR HGB CONC 34.6 g/dl (32.0-36.5); MEAN CORPUSCULAR VOLUME 89.1 fl (80.0-96.0); RED BLOOD COUNT 4.67 10^6/uL (4.30-6.10)
[2023-08-19 07:39] LABS: BLOOD UREA NITROGEN 8 MG/DL (9-23); CALCIUM LEVEL 9.1 MG/DL (8.5-10.1); CARBON DIOXIDE LEVEL 26 MMOL/L (20-31); CHLORIDE LEVEL 101 MMOL/L (98-107); CREATININE FOR GFR 0.54 MG/DL (0.70-1.30); GLOMERULAR FILTRATION RATE > 60.0 (>56); GLUCOSE, FASTING 145 MG/DL (60-100); POTASSIUM SERUM 4.2 MMOL/L (3.5-5.1); SODIUM LEVEL 135 MMOL/L (136-145)
[2023-08-19 07:51] LABS: PROCALCITONIN <0.04 ng/ml
[2023-08-19] MEDS: AZITHROMYCIN 250MG TABLET PO SCH (08:04)
[2023-08-19] MEDS: amLODIPine 5 MG TAB PO SCH (08:04)
[2023-08-19] MEDS: ENOXAPARIN 40MG/0.4ML SYRINGE (J1650 PER 10MG) SC SCH (09:00)
[2023-08-19] MEDS: methylPREDNISolone 40MG 1ML VIAL IV SCH (09:44)
[2023-08-19 10:28] LABS: PLTBLUE- EDTA FREE CALC 237 K/mm3 (172-450)
[2023-08-19 10:39] LABS: PLTBLUE- EDTA FREE MACHINE 215 10^3/uL (172-450)
[2023-08-19] MEDS: LEVALBUTEROL 1.25MG 0.5ML CONCENTRATE NEB INH PRN (12:00)
[2023-08-19 15:36] VITALS: BP 136/96; TEMP 98.2; O2SAT 90
[2023-08-19] MEDS: AZELASTINE 137MCG NASAL SPY 30 ML (ASTELIN) SCH (16:44)
[2023-08-19] MEDS: ACETAMINOPHEN TAB 650MG DOSE (2X325MG) PO PRN (16:45)
[2023-08-19] MEDS: DEXTROMETHORPHAN 60MG/10ML SUSP 90ML BTL(DELSYM) PO PRN (17:22)
[2023-08-19 20:20] VITALS: BP 134/93; TEMP 98.2; O2SAT 94
[2023-08-19] MEDS: MONTELUKAST 10 MG TAB PO SCH (21:26)
[2023-08-20 05:13] VITALS: BP 129/76; TEMP 98.8; O2SAT 92
[2023-08-20 05:54] LABS: BASO # 0.1 10^3/uL (0.0-0.2); BASO % 0.2 % (0.0-1.0); HEMATOCRIT 42.9 % (42.0-52.0); HEMOGLOBIN 14.5 g/dl (13.5-17.5); LYMPH # 1.4 10^3/uL (1.5-5.0); MEAN CORPUSCULAR HEMOGLOBIN 30.3 pg (27.0-33.0); MEAN CORPUSCULAR HGB CONC 33.8 g/dl (32.0-36.5); MEAN CORPUSCULAR VOLUME 89.7 fl (80.0-96.0); MONO # 0.8 10^3/uL (0.0-0.8); MONO % 3.1 % (2.0-8.0); NEUTROPHILS % 91.1 % (36.0-66.0); PLATELET COUNT, AUTOMATED 162 10^3/uL (150-450); RED BLOOD COUNT 4.78 10^6/uL (4.30-6.10); WHITE BLOOD COUNT 27.4 10^3/uL (4.0-10.0)
[2023-08-20 06:23] LABS: BLOOD UREA NITROGEN 19 MG/DL (9-23); CALCIUM LEVEL 9.4 MG/DL (8.5-10.1); CARBON DIOXIDE LEVEL 27 MMOL/L (20-31); CHLORIDE LEVEL 102 MMOL/L (98-107); CREATININE FOR GFR 0.58 MG/DL (0.70-1.30); GLOMERULAR FILTRATION RATE > 60.0 (>56); GLUCOSE, FASTING 110 MG/DL (60-100); MAGNESIUM LEVEL 2.4 MG/DL (1.8-2.4); POTASSIUM SERUM 4.9 MMOL/L (3.5-5.1); SODIUM LEVEL 137 MMOL/L (136-145)
[2023-08-20] MEDS ORDERED: ISOVUE-370 76% 100ML VIAL As Ordered ONE (08:44)
[2023-08-20] MEDS ORDERED: predniSONE 20 MG TAB PO SCH ×2 (09:00)
[2023-08-20] MEDS ORDERED: AZELASTINE 137MCG NASAL SPY 30 ML (ASTELIN) SCH (09:00)
[2023-08-20 14:00] VITALS: BP 131/91; TEMP 98.4
[2023-08-20 16:30] VITALS: TEMP 99.1
[2023-08-20] MEDS: SYMBICORT 160/4.5MCG INHALER 6GM INH SCH (19:44)
[2023-08-20 20:12] VITALS: BP 131/90; TEMP 98.8; O2SAT 94
[2023-08-20] MEDS: METOPROLOL TART 25 MG TABLET PO SCH (20:12)
[2023-08-21] MEDS: ALBUTEROL 90 MCG/ACT 8GM HFA INHALER INH PRN (04:27)
[2023-08-21 05:24] VITALS: BP 143/92; TEMP 98.8; O2SAT 91
[2023-08-21 05:34] VITALS: O2SAT 90
[2023-08-21 06:34] LABS: BASO % 0.2 % (0.0-1.0); EOS % 0.1 % (0.0-3.0); HEMATOCRIT 39.9 % (42.0-52.0); HEMOGLOBIN 13.3 g/dl (13.5-17.5); LYMPH # 2.4 10^3/uL (1.5-5.0); LYMPH % 10.6 % (24.0-44.0); MEAN CORPUSCULAR HEMOGLOBIN 30.5 pg (27.0-33.0); MEAN CORPUSCULAR HGB CONC 33.3 g/dl (32.0-36.5); MEAN CORPUSCULAR VOLUME 91.5 fl (80.0-96.0); MONO # 1.2 10^3/uL (0.0-0.8); MONO % 5.3 % (2.0-8.0); NEUTROPHILS # 18.6 10^3/uL (1.5-8.5); NEUTROPHILS % 83.3 % (36.0-66.0); RED BLOOD COUNT 4.36 10^6/uL (4.30-6.10); WHITE BLOOD COUNT 22.4 10^3/uL (4.0-10.0)
[2023-08-21 06:55] LABS: BLOOD UREA NITROGEN 22 MG/DL (9-23); CALCIUM LEVEL 8.8 MG/DL (8.5-10.1); CARBON DIOXIDE LEVEL 30 MMOL/L (20-31); CHLORIDE LEVEL 104 MMOL/L (98-107); CREATININE FOR GFR 0.59 MG/DL (0.70-1.30); GLOMERULAR FILTRATION RATE > 60.0 (>56); GLUCOSE, FASTING 85 MG/DL (60-100); MAGNESIUM LEVEL 2.2 MG/DL (1.8-2.4); POTASSIUM SERUM 4.1 MMOL/L (3.5-5.1); SODIUM LEVEL 139 MMOL/L (136-145)
[2023-08-21] MEDS: TIOTROPIUM INHALER/CAPSULE (SPIRIVA) INH SCH (07:12)
[2023-08-21] MEDS ORDERED: ACETYLCYSTEINE 20% 4 ML VIAL (200MG/ML) NEB SCH (08:00)
[2023-08-21] MEDS: ACETYLCYSTEINE 20% 4 ML VIAL (200MG/ML) NEB SCH (08:00)
[2023-08-21] MEDS: predniSONE 20 MG TAB PO SCH (08:44)
[2023-08-21 09:00] VITALS: O2SAT 90
[2023-08-21] MEDS ORDERED: ACETYLCYSTEINE 10% 30ML VIAL PO SCH (09:00)
[2023-08-21] MEDS: guaiFENesin ER TABLET 600 MG TAB PO SCH (10:07)
[2023-08-21] MEDS ORDERED: ALBUTEROL SULFATE 2.5MG/0.5ML INH NEB SOLN NEB PRN (10:40)
[2023-08-21 10:50] LABS: PROCALCITONIN <0.04 ng/ml
[2023-08-21 14:00] VITALS: BP 128/92; TEMP 98.8; O2SAT 92
[2023-08-21 20:13] VITALS: BP 134/86; TEMP 98.2; O2SAT 92
[2023-08-22 05:20] VITALS: BP 158/112; TEMP 99; O2SAT 92
[2023-08-22 05:28] VITALS: TEMP 97.4
[2023-08-22 05:47] VITALS: BP 126/90
[2023-08-22 07:53] LABS: BASO % 0.3 % (0.0-1.0); EOS # 0.1 10^3/uL (0.0-0.5); EOS % 0.9 % (0.0-3.0); HEMATOCRIT 39.7 % (42.0-52.0); HEMOGLOBIN 13.4 g/dl (13.5-17.5); LYMPH # 3.2 10^3/uL (1.5-5.0); LYMPH % 26.3 % (24.0-44.0); MEAN CORPUSCULAR HEMOGLOBIN 30.7 pg (27.0-33.0); MEAN CORPUSCULAR HGB CONC 33.8 g/dl (32.0-36.5); MEAN CORPUSCULAR VOLUME 90.8 fl (80.0-96.0); MONO % 8.1 % (2.0-8.0); NEUTROPHILS # 7.9 10^3/uL (1.5-8.5); NEUTROPHILS % 64.1 % (36.0-66.0); RED BLOOD COUNT 4.37 10^6/uL (4.30-6.10); WHITE BLOOD COUNT 12.3 10^3/uL (4.0-10.0)
[2023-08-22 08:14] LABS: BLOOD UREA NITROGEN 16 MG/DL (9-23); CALCIUM LEVEL 8.2 MG/DL (8.5-10.1); CARBON DIOXIDE LEVEL 29 MMOL/L (20-31); CHLORIDE LEVEL 105 MMOL/L (98-107); GLOMERULAR FILTRATION RATE > 60.0 (>56); GLUCOSE, FASTING 87 MG/DL (60-100); POTASSIUM SERUM 3.8 MMOL/L (3.5-5.1); SODIUM LEVEL 139 MMOL/L (136-145)
[2023-08-22 09:00] VITALS: O2SAT 91
[2023-08-22] MEDS: AZITHROMYCIN 250MG TABLET PO SCH (09:46)
[2023-08-22 14:00] VITALS: BP 114/71; TEMP 97.7; O2SAT 90
[2023-08-22 19:47] VITALS: BP 118/71; TEMP 98.8; O2SAT 92
[2023-08-23] MEDS: RAMELTEON 8 MG TAB (ROZEREM) PO PRN (01:18)
[2023-08-23 05:16] VITALS: BP 115/72; TEMP 98.6; O2SAT 92
[2023-08-23 05:59] LABS: BASO # 0.1 10^3/uL (0.0-0.2); BASO % 0.4 % (0.0-1.0); EOS # 0.2 10^3/uL (0.0-0.5); EOS % 1.3 % (0.0-3.0); HEMATOCRIT 40.6 % (42.0-52.0); HEMOGLOBIN 13.7 g/dl (13.5-17.5); LYMPH # 3.3 10^3/uL (1.5-5.0); LYMPH % 24.3 % (24.0-44.0); MEAN CORPUSCULAR HEMOGLOBIN 30.7 pg (27.0-33.0); MEAN CORPUSCULAR HGB CONC 33.7 g/dl (32.0-36.5); MONO # 0.9 10^3/uL (0.0-0.8); NEUTROPHILS # 8.9 10^3/uL (1.5-8.5); NEUTROPHILS % 66.3 % (36.0-66.0); RED BLOOD COUNT 4.46 10^6/uL (4.30-6.10); WHITE BLOOD COUNT 13.4 10^3/uL (4.0-10.0)
[2023-08-23 06:16] LABS: BLOOD UREA NITROGEN 14 MG/DL (9-23); CALCIUM LEVEL 8.2 MG/DL (8.5-10.1); CARBON DIOXIDE LEVEL 28 MMOL/L (20-31); CHLORIDE LEVEL 103 MMOL/L (98-107); CREATININE FOR GFR 0.54 MG/DL (0.70-1.30); GLOMERULAR FILTRATION RATE > 60.0 (>56); GLUCOSE, FASTING 82 MG/DL (60-100); MAGNESIUM LEVEL 2.1 MG/DL (1.8-2.4); POTASSIUM SERUM 3.7 MMOL/L (3.5-5.1); SODIUM LEVEL 137 MMOL/L (136-145)
[2023-08-23 07:45] VITALS: BP 136/85
[2023-08-23 14:00] VITALS: BP 136/87; TEMP 96.5; O2SAT 96
[2023-08-23 22:00] VITALS: BP 138/86; TEMP 97.8; O2SAT 94
[2023-08-24 00:18] VITALS: O2SAT 95
[2023-08-24 06:00] VITALS: BP 131/81; TEMP 98.2; O2SAT 94
[2023-08-24 06:12] LABS: BASO # 0.1 10^3/uL (0.0-0.2); BASO % 0.3 % (0.0-1.0); EOS # 0.2 10^3/uL (0.0-0.5); EOS % 1.4 % (0.0-3.0); HEMATOCRIT 40.4 % (42.0-52.0); LYMPH # 3.5 10^3/uL (1.5-5.0); LYMPH % 24.1 % (24.0-44.0); MEAN CORPUSCULAR HEMOGLOBIN 31.1 pg (27.0-33.0); MEAN CORPUSCULAR HGB CONC 34.7 g/dl (32.0-36.5); MEAN CORPUSCULAR VOLUME 89.8 fl (80.0-96.0); MONO # 0.9 10^3/uL (0.0-0.8); MONO % 6.4 % (2.0-8.0); NEUTROPHILS # 9.7 10^3/uL (1.5-8.5); NEUTROPHILS % 66.6 % (36.0-66.0); WHITE BLOOD COUNT 14.7 10^3/uL (4.0-10.0)
[2023-08-24 06:30] LABS: BLOOD UREA NITROGEN 14 MG/DL (9-23); CALCIUM LEVEL 8.6 MG/DL (8.5-10.1); CARBON DIOXIDE LEVEL 30 MMOL/L (20-31); CHLORIDE LEVEL 101 MMOL/L (98-107); CREATININE FOR GFR 0.55 MG/DL (0.70-1.30); GLOMERULAR FILTRATION RATE > 60.0 (>56); GLUCOSE, FASTING 78 MG/DL (60-100); MAGNESIUM LEVEL 2.1 MG/DL (1.8-2.4); POTASSIUM SERUM 3.7 MMOL/L (3.5-5.1); SODIUM LEVEL 136 MMOL/L (136-145)
[2023-08-24 08:18] VITALS: BP 126/82
[2023-08-24] MEDS ORDERED: TREL1AER PO (09:43)
[2023-08-24] MEDS ORDERED: METO1TAB87 PO (09:43)
[2023-08-24] MEDS ORDERED: PRED10TA2 PO (09:43)
== END 2023-08-24 14:15 | disposition home or self-care (01) | DRG 140 ==
LOC: M ED 02:05 → M ED INP 05:06 → M MSPAV 15:27
PROVIDERS: ADMIT Family Medicine; ATTEND Internal Medicine
DX: J44.1 Chronic obstructive pulmonary disease with (acute) exacerbation (principal); J96.01 Acute respiratory failure with hypoxia; D72.18 Eosinophilia in diseases classified elsewhere; I10 Essential (primary) hypertension; J30.9 Allergic rhinitis, unspecified; R00.0 Tachycardia, unspecified; R91.1 Solitary pulmonary nodule; Z79.899 Other long term (current) drug therapy; Z20.822 Contact with and (suspected) exposure to COVID-19; Z59.00 Homelessness unspecified

== ENCOUNTER 2024-01-23 07:54 | Inpatient (IN) | payer MEDICAID, OTHER ==
[~2024-01-23] VITALS: Ht 170.2 cm; Wt 65.6 kg
[~2024-01-23 07:54] MED LIST changes: +ALB2.5NEB INH; +DOXY-323 PO; -DOXY-443 PO; +METO1TAB87 PO; +TREL1AER INH
[2024-01-23] MEDS: SYMBICORT 160/4.5MCG INHALER 6GM INH SCH (08:00)
[2024-01-23 08:37] LABS: VENOUS BASE EXCESS -0.7 (-2.0-2.0); VENOUS HCO3 24.6 MMOL/L (23.0-27.0); VENOUS O2 SATURATION 87.7 % (60.0-80.0); VENOUS PARTIAL PRESSURE CO2 42.7 mmHg (38.0-50.0); VENOUS PARTIAL PRESSURE O2 58.6 mmHg (30.0-50.0); VENOUS PH 7.378 UNITS (7.330-7.430); VENOUS STANDARD HCO3 23.7 MMOL/L; VENOUS TOTAL CO2 25.9 MMOL/L (24.0-28.0)
[2024-01-23] MEDS: IPRATROPIUM 0.5MG/ALBUTEROL 2.5MG INH SOL UD 3ML (DUONEB) NEB PRN (08:46)
[2024-01-23 08:53] LABS: BASO # 0.1 10^3/uL (0.0-0.2); BASO % 0.8 % (0.0-1.0); HEMATOCRIT 38.9 % (42.0-52.0); HEMOGLOBIN 13.4 g/dl (13.5-17.5); LYMPH # 1.7 10^3/uL (1.5-5.0); LYMPH % 11.9 % (24.0-44.0); MEAN CORPUSCULAR HEMOGLOBIN 31.2 pg (27.0-33.0); MEAN CORPUSCULAR HGB CONC 34.4 g/dl (32.0-36.5); MEAN CORPUSCULAR VOLUME 90.5 fl (80.0-96.0); MONO # 1.1 10^3/uL (0.0-0.8); NEUTROPHILS % 64.9 % (36.0-66.0); WHITE BLOOD COUNT 13.9 10^3/uL (4.0-10.0)
[2024-01-23 09:06] LABS: ALBUMIN 3.4 G/DL (3.2-5.2); ALKALINE PHOSPHATASE 87 U/L (46-116); ALT/SGPT 20 U/L (7.0-40); AST/SGOT 19 U/L (<34); BILIRUBIN,DIRECT 0.3 MG/DL (<0.4); BILIRUBIN,TOTAL 0.8 MG/DL (0.3-1.2); BLOOD UREA NITROGEN 16 MG/DL (9-23); CALCIUM LEVEL 8.6 MG/DL (8.5-10.1); CARBON DIOXIDE LEVEL 26 MMOL/L (20-31); CHLORIDE LEVEL 104 MMOL/L (98-107); CREATININE FOR GFR 0.56 MG/DL (0.70-1.30); GLOMERULAR FILTRATION RATE > 60.0 (>56); GLUCOSE, FASTING 108 MG/DL (60-100); POTASSIUM SERUM 3.6 MMOL/L (3.5-5.1); SODIUM LEVEL 137 MMOL/L (136-145); TOTAL PROTEIN 7.6 G/DL (5.7-8.2)
[2024-01-23] MEDS ORDERED: IPRA0.00 INH (10:23)
[2024-01-23] MEDS ORDERED: HOME MED LIST COMPLETE! XX SCH (10:25)
[2024-01-23] MEDS: guaiFENesin ER TABLET 600 MG TAB PO SCH (10:33)
[2024-01-23] MEDS: AZITHROMYCIN 250MG TABLET PO SCH (10:33)
[2024-01-23] MEDS: IPRATROPIUM 0.5MG/ALBUTEROL 2.5MG INH SOL UD 3ML (DUONEB) NEB SCH (12:50)
[2024-01-23] MEDS: methylPREDNISolone 40MG 1ML VIAL IV SCH (18:50)
[2024-01-23 20:21] VITALS: BP 135/97; TEMP 98.1; O2SAT 94
[2024-01-23] MEDS: ENOXAPARIN 40MG/0.4ML SYRINGE (J1650 PER 10MG) SC SCH (20:48)
[2024-01-24] MEDS: BENZONATATE 100MG CAPSULE PO PRN (03:16)
[2024-01-24 04:27] VITALS: BP 130/96; TEMP 98.1; O2SAT 94
[2024-01-24 06:07] LABS: HEMATOCRIT 38.5 % (42.0-52.0); HEMOGLOBIN 13.2 g/dl (13.5-17.5); MEAN CORPUSCULAR HEMOGLOBIN 31.4 pg (27.0-33.0); MEAN CORPUSCULAR HGB CONC 34.3 g/dl (32.0-36.5); MEAN CORPUSCULAR VOLUME 91.7 fl (80.0-96.0); WHITE BLOOD COUNT 14.9 10^3/uL (4.0-10.0)
[2024-01-24 06:29] LABS: BLOOD UREA NITROGEN 15 MG/DL (9-23); CALCIUM LEVEL 8.9 MG/DL (8.5-10.1); CARBON DIOXIDE LEVEL 26 MMOL/L (20-31); CHLORIDE LEVEL 104 MMOL/L (98-107); CREATININE FOR GFR 0.66 MG/DL (0.70-1.30); GLOMERULAR FILTRATION RATE > 60.0 (>56); GLUCOSE, FASTING 101 MG/DL (60-100); POTASSIUM SERUM 4.3 MMOL/L (3.5-5.1); SODIUM LEVEL 139 MMOL/L (136-145)
[2024-01-24 11:50] VITALS: BP 126/87; TEMP 98.1; O2SAT 94
[2024-01-24 21:32] VITALS: BP 125/86; TEMP 98; O2SAT 94
[2024-01-25 05:04] VITALS: BP 119/68; TEMP 97.3; O2SAT 89
[2024-01-25] MEDS ORDERED: ADVAIR HFA 230/21MCG INHALER INH SCH (09:00)
[2024-01-25] MEDS ORDERED: PRED20TA PO (09:00)
[2024-01-25] MEDS ORDERED: ALBU8.5H INH (16:41)
== END 2024-01-25 13:45 | disposition home or self-care (01) | DRG 140 ==
LOC: EDBD 07:54 → M ED 07:54 → M ED INP 10:02 → M MS5PR 11:35
PROVIDERS: ADMIT Internal Medicine Nephrology; ATTEND Internal Medicine
DX: J44.1 Chronic obstructive pulmonary disease with (acute) exacerbation (principal); I10 Essential (primary) hypertension; F17.200 Nicotine dependence, unspecified, uncomplicated; Z79.899 Other long term (current) drug therapy; Z11.52 Encounter for screening for COVID-19

== ENCOUNTER 2024-03-14 11:35 | Inpatient (IN) | payer OTHER, MEDICAID ==
[~2024-03-14] VITALS: Ht 170.2 cm; Wt 68.2 kg
[2024-03-14 13:07] LABS: BASO # 0.1 10^3/uL (0.0-0.2); BASO % 0.9 % (0.0-1.0); EOS # 2.2 10^3/uL (0.0-0.5); HEMATOCRIT 44.1 % (42.0-52.0); LYMPH # 1.6 10^3/uL (1.5-5.0); LYMPH % 16.4 % (24.0-44.0); MEAN CORPUSCULAR HEMOGLOBIN 31.6 pg (27.0-33.0); MONO # 0.6 10^3/uL (0.0-0.8); MONO % 6.2 % (2.0-8.0); NEUTROPHILS # 5.3 10^3/uL (1.5-8.5); NEUTROPHILS % 53.6 % (36.0-66.0); RED BLOOD COUNT 4.74 10^6/uL (4.30-6.10); WHITE BLOOD COUNT 9.8 10^3/uL (4.0-10.0)
[2024-03-14 13:26] LABS: EOS % 22.6 % (0.0-3.0)
[2024-03-14 13:28] LABS: VENOUS BASE EXCESS -2.2 (-2.0-2.0); VENOUS O2 SATURATION 94.6 % (60.0-80.0); VENOUS PARTIAL PRESSURE CO2 41.2 mmHg (38.0-50.0); VENOUS PARTIAL PRESSURE O2 77.1 mmHg (30.0-50.0); VENOUS PH 7.365 UNITS (7.330-7.430); VENOUS STANDARD HCO3 22.6 MMOL/L; VENOUS TOTAL CO2 24.3 MMOL/L (24.0-28.0)
[2024-03-14] MEDS: IPRATROPIUM 0.5MG/ALBUTEROL 2.5MG INH SOL UD 3ML (DUONEB) NEB PRN (13:29)
[2024-03-14 13:33] LABS: ALBUMIN 3.5 G/DL (3.2-5.2); ALKALINE PHOSPHATASE 95 U/L (46-116); ALT/SGPT 15 U/L (7.0-40); AST/SGOT 14 U/L (<34); BILIRUBIN,DIRECT 0.2 MG/DL (<0.4); BILIRUBIN,TOTAL 0.7 MG/DL (0.3-1.2); BLOOD UREA NITROGEN 6 MG/DL (9-23); CALCIUM LEVEL 9.1 MG/DL (8.5-10.1); CARBON DIOXIDE LEVEL 28 MMOL/L (20-31); CHLORIDE LEVEL 105 MMOL/L (98-107); CK-MB VALUE MASS 1.7 NG/ML (<3.6); CREATININE FOR GFR 0.59 MG/DL (0.70-1.30); GLOMERULAR FILTRATION RATE > 60.0 (>56); GLUCOSE, FASTING 98 MG/DL (60-100); POTASSIUM SERUM 3.7 MMOL/L (3.5-5.1); SODIUM LEVEL 140 MMOL/L (136-145); TOTAL PROTEIN 7.3 G/DL (5.7-8.2)
[2024-03-14 13:35] LABS: CPK CREATINE PHOSPHOKINASE 108 U/L (46-171); MB/CK RELATIVE INDEX 1.57 (< OR =4)
[2024-03-14] MEDS: methylPREDNISolone 125MG 2ML VIAL IV ONE (13:56)
[2024-03-14] MEDS ORDERED: ISOVUE-370 76% 100ML VIAL As Ordered ONE (14:15)
[2024-03-14 15:00] LABS: CK-MB VALUE MASS 1.7 NG/ML (<3.6)
[2024-03-14 15:01] LABS: MB/CK RELATIVE INDEX 1.58 (< OR =4)
[2024-03-14] MEDS: IPRATROPIUM 0.5MG/ALBUTEROL 2.5MG INH SOL UD 3ML (DUONEB) NEB SCH (16:07)
[2024-03-14 16:12] VITALS: O2SAT 96
[2024-03-14] MEDS ORDERED: HOME MED LIST COMPLETE! XX SCH (16:15)
[2024-03-14 17:25] VITALS: BP 140/92; TEMP 97.5; O2SAT 85
[2024-03-14 17:30] VITALS: O2SAT 91
[2024-03-14] MEDS: ENOXAPARIN 40MG/0.4ML SYRINGE (J1650 PER 10MG) SC ONE (17:37)
[2024-03-14] MEDS: IPRATROPIUM 0.02% SOLN 0.5MG 2.5ML NEB INH SCH (19:56)
[2024-03-14] MEDS: LEVALBUTEROL 1.25MG 0.5ML CONCENTRATE NEB INH SCH (19:57)
[2024-03-14] MEDS: ADVAIR HFA 115/21MCG INHALER INH SCH (20:00)
[2024-03-14 20:21] VITALS: BP 141/98; TEMP 98.1; O2SAT 89
[2024-03-14] MEDS: DOXYCYCLINE HYCLATE 100MG TABLET PO SCH (20:28)
[2024-03-14] MEDS: methylPREDNISolone 125MG 2ML VIAL IV SCH (20:28)
[2024-03-14] MEDS: guaiFENesin ER TABLET 600 MG TAB PO SCH (20:28)
[2024-03-15] VITALS (11 sets, daily range): BP systolic 135–152; BP diastolic 90–98; TEMP 97.7–98.8; O2SAT 76–94
[2024-03-15] MEDS: LEVALBUTEROL 1.25MG 0.5ML CONCENTRATE NEB INH PRN (04:22)
[2024-03-15] MEDS: TIOTROPIUM INHALER/CAPSULE (SPIRIVA) INH SCH (07:06)
[2024-03-15] MEDS: ENOXAPARIN 40MG/0.4ML SYRINGE (J1650 PER 10MG) SC SCH (08:46)
[2024-03-15] MEDS ORDERED: ENTER DRUG NAME HERE (PATIENT'S OWN MED) INH SCH (09:00)
[2024-03-15] MEDS: METOPROLOL TART 25 MG TABLET PO SCH (12:50)
[2024-03-15 18:00] LABS: BARBITURATES URINE NEGATIVE (NEGATIVE); BENZODIAZEPINES URINE NEGATIVE (NEGATIVE); CANNABINOIDS URINE NEGATIVE (NEGATIVE); COCAINE METABOLITE URINE NEGATIVE (NEGATIVE); METHADONE URINE NEGATIVE (NEGATIVE); OPIATES URINE NEGATIVE (NEGATIVE); PHENCYCLIDINE URINE NEGATIVE (NEGATIVE)
[2024-03-15 18:03] LABS: AMPHETAMINES LEVEL URINE POSITIVE (NEGATIVE)
[2024-03-15] MEDS: IPRATROPIUM 0.02% SOLN 0.5MG 2.5ML NEB INH PRN (23:34)
[2024-03-16 05:04] VITALS: BP 130/96; TEMP 97.9; O2SAT 89
[2024-03-16] MEDS ORDERED: ATRO0.063 INH (08:55)
[2024-03-16] MEDS ORDERED: VENTAER INH (08:55)
[2024-03-16] MEDS ORDERED: TREL1AER PO (08:55)
[2024-03-16] MEDS ORDERED: DOXY100T PO (08:55)
[2024-03-16 11:51] VITALS: TEMP 98.1; O2SAT 90
[2024-03-16 19:28] VITALS: BP 143/99; TEMP 98.1; O2SAT 89
[2024-03-16] MEDS: methylPREDNISolone 40MG 1ML VIAL IV SCH (20:04)
[2024-03-17] MEDS: RAMELTEON 8 MG TAB (ROZEREM) PO PRN (01:40)
[2024-03-17 03:49] VITALS: O2SAT 86
[2024-03-17 03:53] VITALS: O2SAT 89
[2024-03-17 04:00] VITALS: BP 137/85; TEMP 97.3; O2SAT 93
[2024-03-17 05:29] VITALS: BP 137/85
[2024-03-17] MEDS ORDERED: LOPR1TAB6 PO (09:21)
== END 2024-03-17 12:35 | disposition home or self-care (01) | DRG 140 ==
LOC: M ED 11:35 → EEVIPCON 15:37 → M ED INP 15:37 → M MSPAV 17:27
PROVIDERS: ADMIT General Practice; ATTEND General Practice
DX: J44.1 Chronic obstructive pulmonary disease with (acute) exacerbation (principal); D72.10 Eosinophilia, unspecified; I10 Essential (primary) hypertension; F11.11 Opioid abuse, in remission; F12.11 Cannabis abuse, in remission; F17.200 Nicotine dependence, unspecified, uncomplicated; F10.21 Alcohol dependence, in remission; Z79.899 Other long term (current) drug therapy; R00.0 Tachycardia, unspecified; Z59.01 Sheltered homelessness

== ENCOUNTER → 2024-04-26 | Outpatient (REF) | payer OTHER, MEDICAID ==
[~2024-04-26] MED LIST changes: +ATRO0.063 INH; -DOXY-323 PO; +DOXY-441 PO; +DOXY100T PO; +LOPR1TAB6 PO
[2024-04-26 18:29] LABS: BASO # 0.1 10^3/uL (0.0-0.2); BASO % 0.8 % (0.0-1.0); EOS # 0.4 10^3/uL (0.0-0.5); EOS % 4.8 % (0.0-3.0); HEMATOCRIT 41.6 % (42.0-52.0); HEMOGLOBIN 13.7 g/dl (13.5-17.5); LYMPH # 1.6 10^3/uL (1.5-5.0); LYMPH % 21.2 % (24.0-44.0); MEAN CORPUSCULAR HEMOGLOBIN 30.9 pg (27.0-33.0); MEAN CORPUSCULAR HGB CONC 32.9 g/dl (32.0-36.5); MEAN CORPUSCULAR VOLUME 93.9 fl (80.0-96.0); MONO # 0.7 10^3/uL (0.0-0.8); MONO % 9.6 % (2.0-8.0); NEUTROPHILS # 4.6 10^3/uL (1.5-8.5); NEUTROPHILS % 63.2 % (36.0-66.0); RED BLOOD COUNT 4.43 10^6/uL (4.30-6.10); WHITE BLOOD COUNT 7.3 10^3/uL (4.0-10.0)
[2024-04-26 18:56] LABS: CHOLESTEROL RISK RATIO 3.92 (<5); LDL CHOLESTEROL 88.4 MG/DL (<100)
== END ==
LOC: M LAB REF 18:07
PROVIDERS: ATTEND Nurse Practitioner Family
DX: I10 Essential (primary) hypertension (principal); J44.9 Chronic obstructive pulmonary disease, unspecified

== ENCOUNTER 2024-07-24 12:05 | Emergency (ER) | payer MEDICAID, OTHER ==
[~2024-07-24] VITALS: Ht 167.6 cm; Wt 72.7 kg
[~2024-07-24 12:05] MED LIST changes: -ADV500INH INH; +ADVA1AER10 INH; -LEVO750T14 PO; +LEVO75TAB PO
[2024-07-24 12:10] VITALS: BP 148/98; TEMP 97.4; O2SAT 99
== END 2024-07-24 16:34 | disposition home or self-care (01) ==
LOC: M ED 12:05
DX: S52.352A Displaced comminuted fracture of shaft of radius, left arm, initial encounter for closed fracture (principal); Y92.019 Unspecified place in single-family (private) house as the place of occurrence of the external cause; Y93.9 Activity, unspecified; Y99.9 Unspecified external cause status; W01.0XXA Fall on same level from slipping, tripping and stumbling without subsequent striking against object, initial encounter; I10 Essential (primary) hypertension; J44.9 Chronic obstructive pulmonary disease, unspecified; F17.210 Nicotine dependence, cigarettes, uncomplicated; Z79.51 Long term (current) use of inhaled steroids; Z79.899 Other long term (current) drug therapy

== ENCOUNTER 2025-03-09 00:50 | Observation (INO) | payer MEDICAID, OTHER, SELFPAY ==
[~2025-03-09] VITALS: Ht 167.6 cm; Wt 78.7 kg
[2025-03-09 01:34] LABS: BASO # 0.1 10^3/uL (0.0-0.2); BASO % 0.4 % (0.0-1.0); EOS # 0.7 10^3/uL (0.0-0.5); EOS % 6.3 % (0.0-3.0); LYMPH # 2.3 10^3/uL (1.5-5.0); LYMPH % 19.9 % (24.0-44.0); MONO # 0.9 10^3/uL (0.0-0.8); MONO % 7.8 % (2.0-8.0); NEUTROPHILS # 7.4 10^3/uL (1.5-8.5); NEUTROPHILS % 65.4 % (36.0-66.0)
[2025-03-09 01:48] LABS: VENOUS BASE EXCESS 0.1 (-2.0-2.0); VENOUS HCO3 26.6 MMOL/L (23.0-27.0); VENOUS O2 SATURATION 98.6 % (60.0-80.0); VENOUS PARTIAL PRESSURE CO2 49.5 mmHg (38.0-50.0); VENOUS PARTIAL PRESSURE O2 136.4 mmHg (30.0-50.0); VENOUS PH 7.348 UNITS (7.330-7.430); VENOUS STANDARD HCO3 24.6 MMOL/L; VENOUS TOTAL CO2 28.1 MMOL/L (24.0-28.0)
[2025-03-09] MEDS: MAG SULF 1GM/100ML (MAG RUN) 1 GM in IV 1 EA IV ONE (02:17)
[2025-03-09] MEDS: BUDESONIDE 0.5 MG/2 ML INHALATION SUSPENSION NEB ONE (02:22)
[2025-03-09] MEDS: IPRATROPIUM 0.5 MG/ALBUTEROL 2.5 MG INH SOL UD 3 ML NEB SCH ×2 (02:22→08:13)
[2025-03-09 02:32] LABS: ALT/SGPT 18 U/L (7.0-40); AST/SGOT 21 U/L (<34); CALCIUM LEVEL 9.1 MG/DL (8.5-10.1); CARBON DIOXIDE LEVEL 29 MMOL/L (20-31); CHLORIDE LEVEL 102 MMOL/L (98-107); CK-MB VALUE MASS 3.5 NG/ML (<3.6); CREATININE FOR GFR 0.86 MG/DL (0.70-1.30); GLOMERULAR FILTRATION RATE > 90.0 (>56); POTASSIUM SERUM 3.9 MMOL/L (3.5-5.1); SODIUM LEVEL 141 MMOL/L (136-145)
[2025-03-09 02:33] LABS: CPK CREATINE PHOSPHOKINASE 114 U/L (46-171); MB/CK RELATIVE INDEX 3.07 (< OR =4)
[2025-03-09] MEDS ORDERED: ISOVUE-370 76% 100 ML VIAL As Ordered ONE (03:28)
[2025-03-09 04:03] LABS: CK-MB VALUE MASS 4.4 NG/ML (<3.6)
[2025-03-09 04:13] LABS: CPK CREATINE PHOSPHOKINASE 125.0 U/L (46-171); MB/CK RELATIVE INDEX 3.52 (< OR =4)
[2025-03-09] MEDS ORDERED: ACETAMINOPHEN 325 MG TAB PO PRN (04:55)
[2025-03-09] MEDS ORDERED: MAALOX 30 ML SUSP *UDC PO PRN (04:55)
[2025-03-09] MEDS ORDERED: MOM 30 ML SUSPENSION UDC PO PRN (04:55)
[2025-03-09] MEDS ORDERED: NICOTINE 21 MG/24 HR 1 EA TRANSDERMAL TD PRN (04:55)
[2025-03-09] MEDS ORDERED: ALBUTEROL SULFATE 2.5 MG/0.5 ML INH CONCENTRATE NEB SOLN NEB PRN (04:55)
[2025-03-09] MEDS: UNRESOLVED CLARIFICATION ENTRY XX STA (05:06)
[2025-03-09] MEDS: AZITHROMYCIN INJ 500 MG, VIAL MATE ADAPTER 1 EACH in NS 250 ML IV SCH (05:53)
[2025-03-09] MEDS: DOXYCYCLINE HYCLATE 100 MG TABLET PO SCH (05:55)
[2025-03-09 05:56] LABS: INR 0.95
[2025-03-09 05:59] LABS: MAGNESIUM LEVEL 2.1 MG/DL (1.8-2.4)
[2025-03-09] MEDS: TIOTROPIUM BROM 2.5MCG/ACTUATION 4GM INH INH SCH (08:00)
[2025-03-09] MEDS: ADVAIR HFA 230/21 MCG INHALER INH SCH (08:00)
[2025-03-09] MEDS: SYMBICORT 160/4.5MCG INHALER 6GM INH SCH (08:13)
[2025-03-09] MEDS: DOCUSATE SODIUM 100 MG CAPSULE PO SCH (09:00)
[2025-03-09] MEDS: PANTOPRAZOLE 40MG TAB PO SCH (09:40)
[2025-03-09] MEDS: amLODIPine 5 MG TAB PO SCH (11:37)
[2025-03-09] MEDS ORDERED: HOME MED LIST COMPLETE! XX SCH (14:45)
[2025-03-09] MEDS ORDERED: MONT10TA97 PO (14:45)
[2025-03-09] MEDS ORDERED: SILD25TA2 PO (14:45)
[2025-03-09] MEDS ORDERED: IPRA0.00 NEB (14:45)
[2025-03-09 16:56] LABS: BASO # 0.0 10^3/uL (0.0-0.2); BASO % 0.2 % (0.0-1.0); EOS # 0.0 10^3/uL (0.0-0.5); EOS % 0.1 % (0.0-3.0); LYMPH # 0.7 10^3/uL (1.5-5.0); LYMPH % 6.5 % (24.0-44.0); MONO # 0.1 10^3/uL (0.0-0.8); MONO % 1.3 % (2.0-8.0); NEUTROPHILS # 9.8 10^3/uL (1.5-8.5); NEUTROPHILS % 91.5 % (36.0-66.0)
[2025-03-09 17:23] LABS: PLTBLUE- EDTA FREE CALC 226 K/mm3 (172-450)
[2025-03-09 17:25] LABS: PLTBLUE- EDTA FREE MACHINE 205 10^3/uL (172-450)
[2025-03-09 17:27] LABS: PLATELET CHECK? YES (YES)
[2025-03-09 21:34] VITALS: BP 133/79; TEMP 98.5; O2SAT 88
[2025-03-09 21:45] VITALS: O2SAT 88
[2025-03-10] VITALS (9 sets, daily range): BP systolic 115–137; BP diastolic 73–97; TEMP 97.4–98.6; O2SAT 89–97
[2025-03-10] MEDS: AZITHROMYCIN 250 MG TABLET PO SCH (08:37)
[2025-03-10 08:39] LABS: ALT/SGPT 16 U/L (7.0-40); AST/SGOT 14 U/L (<34); CALCIUM LEVEL 9.3 MG/DL (8.5-10.1); CARBON DIOXIDE LEVEL 26 MMOL/L (20-31); CHLORIDE LEVEL 102 MMOL/L (98-107); CREATININE FOR GFR 0.66 MG/DL (0.70-1.30); GLOMERULAR FILTRATION RATE > 90.0 (>56); MAGNESIUM LEVEL 2.1 MG/DL (1.8-2.4); POTASSIUM SERUM 4.6 MMOL/L (3.5-5.1); SODIUM LEVEL 140 MMOL/L (136-145)
[2025-03-11] VITALS (7 sets, daily range): BP systolic 114–135; BP diastolic 76–82; TEMP 97.9–99; O2SAT 89–94
[2025-03-11 08:50] LABS: ALT/SGPT 18 U/L (7.0-40); AST/SGOT 14 U/L (<34); CALCIUM LEVEL 8.8 MG/DL (8.5-10.1); CARBON DIOXIDE LEVEL 25 MMOL/L (20-31); CHLORIDE LEVEL 102 MMOL/L (98-107); CREATININE FOR GFR 0.63 MG/DL (0.70-1.30); GLOMERULAR FILTRATION RATE > 90.0 (>56); POTASSIUM SERUM 4.0 MMOL/L (3.5-5.1); SODIUM LEVEL 139 MMOL/L (136-145)
[2025-03-11] MEDS ORDERED: TREL1AER INH (09:05)
[2025-03-11] MEDS ORDERED: MONT10TA97 PO (09:07)
[2025-03-11] MEDS ORDERED: VENTAER INH (09:07)
[2025-03-11] MEDS ORDERED: AMLO1TAB24 PO (09:07)
[2025-03-11] MEDS: ENOXAPARIN 40 MG/0.4 ML SYRINGE (J1650 PER 10MG) SC SCH (09:26)
== END 2025-03-11 10:24 | disposition home or self-care (01) ==
LOC: M ED 00:50 → M ED INP 04:52 → M MS4PR 21:30
PROVIDERS: ADMIT Student in an Organized Health Care Education/Training Program; ATTEND Internal Medicine
DX: J96.01 Acute respiratory failure with hypoxia (principal); J44.1 Chronic obstructive pulmonary disease with (acute) exacerbation; J45.901 Unspecified asthma with (acute) exacerbation; F15.10 Other stimulant abuse, uncomplicated; F12.10 Cannabis abuse, uncomplicated; R00.0 Tachycardia, unspecified; I44.4 Left anterior fascicular block; D72.10 Eosinophilia, unspecified; I10 Essential (primary) hypertension; Z86.19 Personal history of other infectious and parasitic diseases; R51.9 Headache, unspecified; R05.8 Other specified cough; Z79.899 Other long term (current) drug therapy; Z79.51 Long term (current) use of inhaled steroids
CPT/HCPCS: 36415; 71045; 71275; 80048; 80053; 80076; 82550; 82553; 82803; 83735; 83880; 84145; 84484; 85025; 85027; 85049; 85610; 85730; 87486; 87581; 87633; 87798; 93005; 93041; 94640; 94760; 96365; 96366; 96372; 96375; 96376; 99285; J0456; J1650; J2919; J3475; Q9967